=== PATIENT | male | born 1950 | race Caucasian/White ===

== ENCOUNTER → 2016-06-12 | Outpatient (CLI) | payer MEDICARE, BC ==
--- NOTE | 2016-06-13 08:18 | DI ---
Indication: ITS.REASON: C61 Comparison: None PROCEDURE: CT of the pelvis without contrast. Technique: Axial CT images were performed through the pelvis without intravenous contrast. Coronal and sagittal two-dimensional reformats. Automated Exposure Control and Iterative Reconstruction dose lowering techniques were utilized. Findings: Small and large bowel loops show sigmoid diverticulosis without diverticulitis. Bladder appears normal. Calcifications in the right aspect of the prostate which is not enlarged. Seminal vesicles are unremarkable. No free fluid. No adenopathy identified. Small fat-containing left inguinal hernia. Bone windows show no worrisome lytic or blastic osseous lesions. Impression: Radiation therapy treatment planning exam as above. .
== END ==
LOC: IMA 17:30
PROVIDERS: ATTEND Radiology Radiation Oncology
DX: C61 Malignant neoplasm of prostate (principal)

== ENCOUNTER → 2016-06-13 | Outpatient (CLI) | payer MEDICARE, BC ==
[~2016-06-13] MED LIST: SALINE FLUSH 10ml SYRINGE ONE
--- NOTE | 2016-06-13 11:23 | DI ---
Indication: ITS.REASON: C61 PROSTATE CA PROCEDURE: NM BONE SCAN, WHOLE BODY: Encounter: Subsequent Comparison: Treatment planning CT from 06/12/2016 Technique: 27.1 mCi of Tc-99m MDP was administered intravenously. Anterior and posterior planar whole-body and spot images were obtained. FINDINGS: The scan demonstrates the expected normal biodistribution for the radiotracer. There is probable degenerative uptake seen in the right shoulder and right knee. There is no abnormal radiotracer uptake to suggest bony metastasis. IMPRESSION: No evidence of metastatic disease to the skeleton. .
== END ==
LOC: IMA 07:39
PROVIDERS: ATTEND Student in an Organized Health Care Education/Training Program
DX: C61 Malignant neoplasm of prostate (principal)
CPT/HCPCS: 78306; A9503

== ENCOUNTER → 2016-06-17 | Outpatient (CLI) | payer MEDICARE, BC ==
[~2016-06-17] MED LIST changes: +IOHEXOL 300 MG/ML 100ml INJECTION ONE; +NORMAL SALINE 100 ML ONE
[2016-06-17 07:41] LABS: CREATININE 1.1 MG/DL (0.8-1.5)
--- NOTE | 2016-06-17 10:46 | DI ---
Indication: ITS.REASON: C61 PROSTATE CA PROCEDURE: CT CHEST/ABD/PELVIS WC: Encounter: Subsequent Comparison: Bone scan dated June 13, 2016 Technique: Axial CT images were performed through the chest, abdomen and pelvis after the administration of intravenous contrast. Coronal and sagittal two-dimensional reformats. Automated Exposure Control and Iterative Reconstruction dose reducing techniques were utilized. Contrast: Omnipaque 300 99 mL Findings: Chest: Mild centrilobular emphysema. Probable scarring in the medial lower lobes. No consolidative pneumonia, pleural effusion or pneumothorax. The central airways are patent. Two small noncalcified nodules in the left lower lobe with the largest measuring 4 mm in size on axial image #48. No axillary or mediastinal adenopathy. Heart size is normal. No pericardial effusion. Coronary artery calcifications. Abdomen/pelvis: Abdominal aortic aneurysm is present measuring up to 4.6 x 4.4 cm in diameter on axial image #36. 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 This originates below the level of the renal arteries and is a fusiform shape. The liver shows several small low-attenuation foci which are too small to definitively characterize. No enhancing liver masses or bile duct dilatation. The gallbladder is surgically absent. The spleen, pancreas and adrenal glands are within normal limits. The kidneys are normal. No abdominal or pelvic lymphadenopathy. Small fat-containing left inguinal hernia. Bladder is normal. Prostatic calcifications. No free fluid. Sigmoid diverticulosis without acute diverticulitis. No bowel obstruction. Bone windows show mild degenerative change in the spine without lytic or blastic osseous lesions. Poststernotomy changes. Impression: 1. 4.6 cm abdominal aortic aneurysm. Recommend vascular surgical evaluation. Six-month follow-up CTA of the abdomen is recommended for monitoring. 2. No definite evidence of metastatic disease in the chest, abdomen or pelvis. 3. 4 mm left lower lobe pulmonary nodule which is most likely to represent a benign granuloma. Recommend continued attention to this area on follow-up exams. 4. Indeterminate low-attenuation liver lesions statistically most likely to represent benign cysts. Continued attention to these areas is also recommended on follow-up studies. .
== END ==
LOC: IMA 07:20
PROVIDERS: ATTEND Internal Medicine Medical Oncology
DX: C61 Malignant neoplasm of prostate (principal); I71.4 Abdominal aortic aneurysm, without rupture; K76.9 Liver disease, unspecified; R91.1 Solitary pulmonary nodule
CPT/HCPCS: 36415; 71260; 74177; 82565; J7050; Q9967; 84520

== ENCOUNTER 2016-06-27 10:06 | Day surgery (SDC) | payer MEDICARE, BC ==
[2016-06-27] VITALS (9 sets, daily range): BP systolic 94–142; BP diastolic 52–72; PULSE 54–72; RESP 16; TEMP 97.9–98.9; O2SAT 92–97; Ht 177.8 cm; Wt 90.4 kg
[~2016-06-27] VITALS: Ht 177.8 cm; Wt 90.4 kg
[~2016-06-27 10:06] MED LIST changes: +ASPI81TA43 PO; +ERTAPENEM 1 G in NORMAL SALINE 100 ML IV ONE; -IOHEXOL 300 MG/ML 100ml INJECTION ONE; +LIDOCAINE 1% (10mg/ml) 2ml SDV INJ ONE; +LOVA40TA2 PO; +LR 1,000 ML IV SCH; +METO25TA6 PO; -NORMAL SALINE 100 ML ONE; +RAMI5CAP22 PO; -SALINE FLUSH 10ml SYRINGE ONE
--- OUTSIDE RECORDS SUMMARY | 2016-06-27 10:19 | XMS REPORT | Referral Summary ---
Author Author [facility] Organization [facility] Address Unknown Phone Unavailable Care Team Providers Care Drill Setup Operator Name Role Phone Chris Alvarado Primary Care Physician [phone] Encounter VC Date(s): 05/14/16 - 05/14/16 [facility] [address] [place] [address] [place] [address] Discharge Diagnosis: Elevated PSA Discharge Disposition: 01-Home or Self Care Attending Physician: Natasha Moctezuma MD Admitting Physician: Natasha Moctezuma MD Vital Signs Most recent to 1 oldest [Reference Range]: Blood Pressure 128/78 mmHg [90-140/60-90 mmHg] (05/14/16 3:00 PM) Problem List No data available for this section Allergies, Adverse Reactions, Alerts Substance Reaction Severity Status penicillin Active Medications aspirin 81 mg oral tablet 81 mg 1 tabs, Oral, Daily, # 30 tabs, 0 Refill(s) Start Date: 05/13/16 Status: Ordered atorvastatin 20 mg oral tablet 20 mg 1 tabs, Oral, Daily, # 30 tabs, 0 Refill(s) Start Date: 05/13/16 Status: Ordered Chantix Starter Pack 0.5 mg-1 mg oral tablet 1 tabs, Oral, BID, as directed on package labeling, # 53 tabs, 0 Refill(s), Pharmacy: [facility] [id number] Start Date: 05/13/16 Status: Ordered Cipro 250 mg oral tablet 500 mg 2 tabs, Oral, q12hr, to be started on the day of procedure., X 7 days, # 28 tabs, 0 Refill(s), Pharmacy: [facility] [id number], 2 tabs Oral q12hr, x7 days,Instr:to be started on the day of procedure. Start Date: 05/14/16 Stop Date: 05/21/16 Status: Ordered metoprolol tartrate 50 mg oral tablet 50 mg 1 tabs, Oral, BID, # 60 tabs, 0 Refill(s) Start Date: 05/13/16 Status: Ordered ramipril 5 mg oral capsule 5 mg 1 caps, Oral, Daily, # 30 caps, 0 Refill(s) Start Date: 05/13/16 Status: Ordered Tylenol 8 Hour 650 mg oral tablet, extended release 1,300 mg 2 tabs, Oral, q8hr, as needed for pain, # 24 tabs, 0 Refill(s) Start Date: 05/13/16 Status: Ordered Results Urinalysis Most recent to 1 oldest [Reference Range]: UA WBC [0-4] 0-2 (05/14/16 3:44 PM) UA RBC [0-4] 0-4 (05/14/16 3:44 PM) Epithelial Cells 0-2 (05/14/16 3:44 PM) Immunizations No data available for this section Procedures Procedure Date Related Diagnosis Body Site Appendix gall bladder Surgery Surgery Social History Social History Type Response Smoking Status Current some day smoker; Type: Cigarettes; Tobacco use per day: 1/2 pack or more Assessment and Plan Extracted from: Title: Office Visit Note Author: Natasha Moctezuma MD Date: 05/14/16 Assessment/Plan 65 yo M with elevated PSA. 1.Elevated PSA Discussed the differential diagnosis, screening guidelines and prevalence of prostate cancer. Will schedule patient for TRUS NBP at next available appointment in [facility]. Ordered: ciprofloxacin, 500 mg 2 tabs, Oral, q12hr, to be started on the day of procedure., X 7 days, # 28 tabs, 0 Refill(s), [facility] [id number], 2 tabs Oral q12hr,x7 days,Instr:to be started on the day of procedure. Office Visit Level 4 New 98805 Urinalysis Microscopic Urine Culture
--- OUTSIDE RECORDS SUMMARY | 2016-06-27 10:19 | XMS REPORT | Continuity of Care Document ---
Author Author Lynne [facility] Address Unknown Phone Unavailable Allergies Medications Problems Date Dx Coded Attending Type Code Diagnosis Diagnosed By 10/13/2013 ONI TEMPLETON MD 491.21 OBSTRUCTIVE CHRONIC BRON 10/13/2013 ONI TEMPLETON MD 786.50 CHEST PAIN NOS 11/14/2013 ONI TEMPLETON MD 238.2 [facility] Procedures Code [place] [address] ROUTINE VENIPUNCTURE ONI TEMPLETON MD 10/13/2013 97616 CHEST X-RAY ONI TEMPLETON MD 10/13/2013 24562 COMPREHEN METABOLIC PANEL ONI TEMPLETON MD 10/13/2013 74340 ASSAY OF CK (CPK) ONI TEMPLETON MD 10/13/2013 10155 CREATINE, MB FRACTION ONI TEMPLETON MD 10/13/2013 12330 LACTATE (LD) (LDH) ENZYME ONI TEMPLETON MD 10/13/2013 59127 ASSAY OF TROPONIN, QUAL ONI TEMPLETON MD 10/13/2013 69188 COMPLETE CBC W/AUTO DIFF WBC ONI TEMPLETON MD 10/13/2013 44751 PROTHROMBIN TIME ONI TEMPLETON MD 10/13/2013 26617 THROMBOPLASTIN TIME, PARTIAL ONI TEMPLETON MD 10/13/2013 11240 ELECTROCARDIOGRAM, TRACING ONI TEMPLETON MD 10/13/2013 Results Test Result Range CBC - 10/13/13 10:30 RBC 5.51 10^6u 4.6-6.2 Bulloch % 10.4 % 0-12 MPV 11.5 FL Platelet 105 10^3u 150-450 RDW 12.8 % Neut % 57.4 % 55-79 WBC 5.38 10^3u 4.5-10.5 MCV 92.6 FL 84-98 Baso % 0.2 % 0-2 MCHC 36.1 G/DL 31-37 Eos % 1.5 % 0-3 HCT 51.0 % 38-54 HGB 18.4 G/DL 12.0-16.0 MCH 33.4 PG 27-32 Lymph % 30.5 % 20-42 Protime - 10/13/13 10:30 Protime 10.8 SEC 10-12 INR 1.04 APTT - 10/13/13 10:30 APTT 27.8 SEC 22-31 CMP - 10/13/13 10:30 Phosphorus 3.3 MG/DL 2.5-4.9 Osmo Calculated 278 MOSM 280-300 Sodium 140 MMOLL 135-145 Potassium 4.2 MMOLL 3.5-5.5 T Bili 0.6 MG/DL 0.0-1.0 T. Protein 7.2 G/DL 6.4-8.2 Chloride 103 MMOLL 98-107 Anion GAP 16.0 MMOLL 5.0-15.0 Albumin 3.7 G/DL 3.4-5.0 Alk Phos 85 U/L 46-116 ALT 38 U/L 30-65 AST 21 U/L 15-37 Bun/Creat 6.7 U/L 5.0-35.0 BUN 8 MG/DL 7-18 Calcium 8.6 MG/DL 8.5-10.1 Glucose 97 MG/DL 74-106 Globulin 3.5 G/DL 3.0-3.2 A/G Ratio 1.1 RATIO 1.1-1.6 EGFR 65 MLMIN > 60 Creatinine 1.2 MG/DL 0.6-1.3 CO2 25.2 MMOLL 21-32 Cardiac Markers - 10/13/13 10:30 LDH 133 U/L 81-234 Troponin I 0.00 NG/ML 0.00-0.05 CKMB 0.9 NG/ML 0.0-3.6 CPK 64 U/L 26-308 Encounters ACCT No. Visit Date/Time Discharge Status Pt. Type Provider Facility Loc./Unit Complaint [id number] 08/08/2014 15:41:00 08/08/2014 15 :41:00 CAN Emergency JARETH ECJA, [facility] ER [id number] 11/14/2013 13:40:00 11/14/2013 13 :40:00 DIS Outpatient JARETH CEJA, [facility] OTHER [id number] 10/13/2013 10:07:00 10/13/2013 10 :07:00 DIS Outpatient JARETH CEJA, [facility] LAB [id number] 10/13/2013 09:20:00 10/13/2013 09 :20:00 DIS Outpatient JARETH CEJA, ON[facility] OTHER
--- OUTSIDE RECORDS SUMMARY | 2016-06-27 10:20 | XMS REPORT ---
Author Author Hilary Tidwell Organization [employer] Address Unknown Phone Unavailable Care Team Providers Care Sales And Service Agent Name Role Phone Hilary Tidwell CP Unavailable Allergies, Adverse Reactions, Alerts Substance Reaction Event Type PCN Info Not Available Non Drug Allergy Problems Problem Type Condition Code Onset Dates Condition Status Assessment Right shoulder strain, initial encounter S46.911A Active Medications Medication Code System Code Instructions Start Date End Date Status Dosage Atorvastatin Calcium [facility] [address]-82 20 MG Orally Once a day 1 tablet Ramipril [facility] [address]-82 5 MG Orally Once a day 1 capsule Metoprolol Tartrate [facility] [address]-08 25 MG Orally Twice a day 1 tablet Aspir-81 [facility] [address]-97 81 MG Orally Once a day 1 tablet Procedures Procedure Coding System Code Date OFFICE VISIT, LIVESTOCK SLAUGHTERER-LOW COMPLEXITY (20 MIN.) CPT-4 34199 Dec 24, 2015 [facility] visit New Patient CPT-4 G0466 Dec 24, 2015 Vital Signs Date/Time: Dec 24, 2015 Temperature 97.7 F Height 69 in Weight 200.9 lbs Blood Pressure Diastolic 90 mm Hg Blood Pressure Systolic 154 mm Hg Cardiac Monitoring Heart Rate 67 /min BMI 29.66 Index Oximetry 97 % Respiratory Rate 18 /min Results No Known Results Summary Purpose [employer] Submission
--- OUTSIDE RECORDS SUMMARY | 2016-06-27 10:20 | XMS REPORT ---
Author Author Hilary Tidwell Organization [employer] Address Unknown Phone Unavailable Care Team Providers Care Waste Disposal Attendant Name Role Phone Hilary Tidwell CP Unavailable Allergies No Known Allergies Problems Problem Type Condition Code Onset Dates Condition Status Assessment Right shoulder strain, initial encounter S46.563F Active Medications No Known Medications Results No Known Results Summary Purpose [employer] Submission
--- OUTSIDE RECORDS SUMMARY | 2016-06-27 10:20 | XMS REPORT | Referral Summary ---
Author Author [facility] Organization [facility] Address Unknown Phone Unavailable Care Team Providers Care Graphics Specialist Name Role Phone Chris Alvarado Primary Care Physician [phone] Encounter Date(s): 05/13/16 - 05/13/16 [facility] [address] [place] [address] Discharge Diagnosis: Elevated PSA Discharge Diagnosis: CAD (coronary artery disease) Discharge Diagnosis: Tobacco abuse Discharge Diagnosis: General medical exam Discharge Diagnosis: Occult blood positive stool Discharge Disposition: -Home or Self Care Attending Physician: Chris Alvarado DO Admitting Physician: Chris Alvarado DO Vital Signs Most recent to 1 oldest [Reference Range]: Temperature Tympanic 36.9 degC [36.6-38.1 degC] (05/13/16 10:00 AM) Peripheral Pulse 72 bpm Rate [60-100 bpm] (05/13/16 10:00 AM) Respiratory Rate 17 br/min [14-20 br/min] (05/13/16 10:00 AM) Blood Pressure 132/80 mmHg [90-140/60-90 mmHg] (05/13/16 10:00 AM) SpO2 98 % (05/13/16 10:00 AM) Problem List No data available for this [...] labeling, # 53 tabs, 0 Refill(s), Pharmacy: [facility] [id number] Start Date: 05/13/16 Status: Ordered metoprolol tartrate 50 mg oral [...] Refill(s) Start Date: 05/13/16 Status: Ordered Results No data available for this section Immunizations No data available for this section Procedures Procedure Date Related Diagnosis Body Site Appendix gall bladder Surgery Surgery Social History Social History Type Response Smoking Status Current some day smoker; Type: Cigarettes; Tobacco use per day: 1/2 pack or more Assessment and Plan Extracted from: Title: Office Visit Note Author: Chris Alvarado DO Date: 05/13/16 Assessment/Plan 1.CAD (coronary artery disease) 1. Continue with shoe folder recommendations. 2. Consider healthy lifestyle changes. 3. Agree with consideration of tobacco cessation. 4. His lipids are well controlled at this time. Ordered: Smoking and tobacco use cessation counseling visit more than 10 minutes [id number] 2.Elevated PSA 1. PSA done at the [facility] on 05/06/16 was elevated at 6.8 2. We will refer him to Urologist for farther evaluation and management. Ordered: Smoking and tobacco use cessation counseling visit more than 10 minutes [id number] 3.Occult blood positive stool 1. Will refer him to Dr Ramsay for colonoscopy for age greater than 50 and + fecal occult blood testing. General medical exam 1. The is a relatively healthy gentleman with significant risk factors for cardiovascular disease. This was discuss in detail. 2. Recommend healthy lifestyle changes. 3. Wt loss recommended. 4. Transfer records from the [facility] and other providers for review. 5. Follow up yearly for WME. Ordered: Office Visit Level 4 New 94248 Smoking and tobacco use cessation counseling visit more than 10 minutes [id number] Tobacco abuse 1. Associated risk factors with tobacco use discuss in detail, all questions answered. 2. He was encouraged to continue with cessation. 3. Was started on Chantix starter pack. 4. Follow up in three months. Ordered: Office Visit Level 4 New 50080 Smoking and tobacco use cessation counseling visit more than 10 minutes [id number]
--- NOTE | 2016-06-27 11:39 | ANESPREOP ---
Anesthesia Record Date and Time DATE: 06/27/16 TIME: 11:37 Pre-Op Diagnosis Left inguinal hernia Proposed Surgical Procedure LEFT INGUINAL HERNIA REPAIR NPO since: midnight Allergies: Coded Allergies: Penicillins (Verified Allergy, Unknown, RASH-HIVES, 06/27/16) Ht/Wt/BMI Height: 5 ' 10.00 " Weight: 90.400 kg BMI: 28.6 kg/m2 Vital Signs Date Time Temp Pulse Resp B/P Pulse Ox O2 Delivery O2 Flow Rate FiO2 06/27/16 11:07 98.9 58 16 142/63 94 Room Air Medications Inpatient Medications Current Medications Medications (Trade) Dose Ordered Sig/Jacki Start Time Stop Time Status Last Admin Dose Admin Lactated Ringer's (Lactated Ringers) 1,000 ml @ 50 mls/hr Q20H 06/27/16 07:00 06/27/16 11:09 50 MLS/HR Aspirin (Aspir-Low) 81 Mg Tablet.dr, 1 TAB PO DAILY, (Reported) Last Taken: on 06/22/16 Lovastatin (Lovastatin) 40 Mg Tablet, 40 MG PO HS, ( Reported) Take one tablet, by mouth, one time a day (at bedtime). Metoprolol Tartrate (Metoprolol Tartrate) 25 Mg Tablet, 25 MG PO BID, (Reported) Take 1 tab, by mouth, one time a day (with breakfast). Ramipril (Ramipril) 5 Mg Capsule, 5 MG PO DAILY, (Reported) Currently on Beta Stacy: Yes Beta Stacy Last Taken: 06/26/16 1900 Medical/Surgical History Anesthesia PMH: Reports: *Hypertension, *AK (CABG 1992/ Stents 2002), Anesthesia Reactions (NO AIRWAY ISSUES), Arthritis (OA), COPD, Cancer (PROSTATE) , Hiatal Hernia, Hyperlipidemia, Reflux, Denies: Clotting Problems, Glaucoma, Malignant Hyperthermia, Sleep Apnea Smoking Status: Current every day smoker Has pt. smoked today?: No # of Packs per Day: 1 # of Years: 50 Use Chewing Tobacco?: No Second Hand Exposure: No Substance Use Type: does not use Alcohol Intake: rarely Past Surgical History Orthopedic Surgeries: Abdominal Surgeries: Yes - APPY, GALLBLADDER Genitourinary Surgeries: Yes - LITHO, CYSTOSCOPY Cardiac Surgeries: Yes - BIPASS 1992 CATH. X2, STENT 2002 Endocrine Surgeries: Reproductive Surgeries: Neurological Surgeries: Ear Surgeries: Nose Surgeries: Throat Surgeries: Other Surgeries: Anesthesia Adverse Reactions: FOUND none Family Hx of Anesthesia Advers: none Hx of Motion Sickness: No Pertinent Findings EKG Rhythm: Sinus Rhythm Physical Exam Respiratory: Lungs clear Cardiovascular: FOUND Regular rate, rhythm Airway Assessment Mallampati Score: II TMD: 3 Fingerbreadths Neck Extension: Fair Teeth: Upper Dentures, Lower Dentures Overall Assessment: May Be Diff Intubation ASA: 3 Plan Anesthesia Plan: TIVA Discussion Discussed risks/options/alternatives of anesthesia and questions answered. Patient consents. Nursing pain assessment noted. Attestation Statement Prior to the delivery of any anesthetic medication, I examined the patient, developed the plan, obtained the patient's consent and discussed the risk and benefits of the procedure with the patient/guardian. MAYA ANGULO BIOMEDICAL MANAGER Jun 27, 2016 11:39
[2016-06-27 12:39] LABS: ANION GAP 10 MEQ/L (5-15); BUN/CREATININE RATIO 16 RATIO (6-26); CHLORIDE 113 MEQ/L (98-107); CO2 - CARBON DIOXIDE 24 MEQ/L (22-30); CREATININE 0.9 MG/DL (0.8-1.5); GLOMERULAR FILTRATION RATE 84; GLUCOSE 91 MG/DL (75-110); POTASSIUM 4.2 MEQ/L (3.6-5); SODIUM 147 MEQ/L (134-144)
[2016-06-27] MEDS ORDERED: BUPIVACAINE 0.25%/EPI 1:200,000 30ml SDV ONE (12:43)
[2016-06-27] MEDS ORDERED: PROPOFOL 500mg 50 ML IV ONE ×2 (12:57→13:40)
[2016-06-27] MEDS ORDERED: FENTANYL 100mcg/2ml INJECTION ONE (12:59)
[2016-06-27] MEDS ORDERED: KETAMINE 500mg/10ml INJECTION ONE (13:06)
[2016-06-27] MEDS ORDERED: POLY17PO6 PO (14:24)
[2016-06-27] MEDS ORDERED: IBUP-1724 PO (14:24)
[2016-06-27] MEDS ORDERED: HYDR-973 PO (14:24)
--- NOTE | 2016-06-27 14:36 | ANESPO ---
Post-Op Note Date 06/27/16 Time: 14:36 Status Pt Participated in Evaluation: Pt participated in person Vital Signs Date Time Temp Pulse Resp B/P Pulse Ox O2 Delivery O2 Flow Rate FiO2 06/27/16 14:20 97.9 72 16 94/52 97 Mask 8.00 Respiratory Function: Airway patent, Regular respirations Cardiovascular Function: Regular pulse Telemetry Pattern: SR Mental Status: Alert/oriented Pain Level Intensity: 0 Hydration: Taking po fluids Complications during Recovery None apparent Follow-Up Instructions Instructions Per Surgeon EDISON MILAN CRNA Jun 27, 2016 14:36
[2016-06-27] MEDS ORDERED: HYDROCODONE/APAP 5 mg/325 mg TABLET PO PRN (15:00)
[2016-06-27] MEDS ORDERED: KETOROLAC 15mg/ml INJECTION IV SCH (15:00)
[2016-06-27] MEDS ORDERED: MORPHINE 10mg/ml vl INJECTION IV PRN (15:30)
--- NOTE | 2016-06-28 09:09 | OPNOTEF ---
DATE OF SERVICE 06/27/2016 SURGEON Rajan Ramsay MD PREOPERATIVE DIAGNOSIS Incarcerated left inguinal hernia. POSTOPERATIVE DIAGNOSIS Strangulated left inguinal hernia. PROCEDURE Repair of strangulated left inguinal hernia. ANESTHESIA TIVA/local. BRIEF HISTORY/INDICATIONS Mr. Simon is a 65-year-old gentleman who about two days ago had presented to my office as a result of some discomfort within his left inguinal region. Upon examination the patient was found to have a tender mass within the left inguinal region. He had no obstructive symptomatology such as nausea or vomiting. The patient was fairly stoic and stated that he was not in any discomfort. The patient, however, from a clinical standpoint did appear to have some discomfort noted upon physical examination. It was recommended to the patient that he undergo a "semiemergent" repair of his left inguinal hernia. Patient was informed that if he began to develop nausea or vomiting or increasing pain that he should contact me prior to today's scheduled inguinal herniorrhaphy. For completeness please refer to notes included in the patient's chart. FINDINGS Upon inguinal exploration, the patient was found to have what appeared to be that of a strangulated inguinal hernia. There was a large indirect hernia sac that contained omentum that did show some evidence for vascular compromise. This portion of omentum that did show a component of some vascular compromise was resected and submitted for pathologic evaluation. The indirect hernia was repaired via standard mesh plug technique. DESCRIPTION OF PROCEDURE After informed consent was obtained, patient was brought to the operative suite and placed on the table in a supine fashion. Left inguinal region was then prepped and draped in a sterile fashion. Formal time-out was then completed. Then, 0.25% Marcaine with epinephrine was injected just above the pubic symphysis and extended out laterally. A slightly larger incision was then made typical for inguinal hernia given the above circumstances. A 6- to 7-cm incision was made overlying the area of analgesia. Dissection was carried down into the deep subcuticular tissues underlying the external oblique aponeurosis. External oblique aponeurosis was then opened along the course of its fibers down to and through the external ring. Patient was found to have a large indirect hernia sac that contained a hard mass adjacent to the cord structures. This mass and cord structures were then dissected off of the pubic tubercle in a mediolateral fashion. Justina drain was then placed around the cord structures. This large indirect hernia sac was then dissected free from the cord structures. Hernia sac was opened, and it did contain a component of omentum that showed a component of vascular compromise. More omentum was then gently pulled through the internal ring/fascial defect until viable-appearing omentum was identified. This omentum proximally was then divided sequentially between right angle clamps and ligated with 0 Vicryl ties. The distal portion of the omentum and hernia sac was then submitted for pathologic evaluation. Next, the cord structure were then dissected out circumferentially. Patient was found to have a moderate-sized cord lipoma that was also dissected away from the cord structures and returned back through the internal ring. Next, a large mesh plug was then brought forth to the operative field and placed through the internal ring and imbricated the surrounding tissues by placing several simple interrupted sutures of 2-0 Prolene. Next, a mesh overlay was then brought forth to the operative field and imbricated the underlying tissues in a standard Gregorio fashion. First, mesh overlay was imbricated to the pubic symphysis with 2-0 Prolene. Mesh overlay was imbricated along the shelving edge out laterally. Medially the mesh overlay imbricated the underlying internal oblique and transversalis aponeurosis in a running fashion with 2-0 Prolene. Tail portions were then cut within the mesh and allowed to envelope the cord as it exited through the internal ring. Tail portions of the mesh were then also imbricated to one another in a running fashion with 2-0 Prolene. Newly created internal ring could easily accommodate the tip of the hemostat between the cord structures and the mesh itself. Additionally it should be noted that the ilioinguinal nerve was identified and divided proximally as to prevent incorporation of the nerve into the mesh repair. Next, prior areas of dissection were inspected and found to be hemostatic in nature. Attention was directed towards closure. External oblique aponeurosis was closed anterior to the cord structures in a running fashion with 3-0 Vicryl. Subcutaneous tissues and Zarina's fascia was then reapproximated in a running fashion with 3-0 Vicryl. Skin itself was then closed in a running subcuticular fashion with 4-0 Monocryl. Dermabond was placed overlying the incision. Patient was awakened from his general anesthetic and sent back to recovery room once deemed in stable condition. MARK
== END 2016-06-27 16:27 | disposition home or self-care (01) ==
LOC: SCU 10:06
PROVIDERS: ATTEND Surgery
DX: K40.30 Unilateral inguinal hernia, with obstruction, without gangrene, not specified as recurrent (principal); C61 Malignant neoplasm of prostate; I25.10 Atherosclerotic heart disease of native coronary artery without angina pectoris; I25.2 Old myocardial infarction; F17.210 Nicotine dependence, cigarettes, uncomplicated; Z79.82 Long term (current) use of aspirin; Z79.899 Other long term (current) drug therapy
CPT/HCPCS: 36415; 49507; 80048; A9270; J1335; J1885; J3010; J7050; J7120; 88302; 93005

== ENCOUNTER 2016-07-17 20:32 | Observation (INO) | payer MEDICARE, BC ==
[~2016-07-17] VITALS: Ht 177.8 cm; Wt 90.4 kg
[~2016-07-17 20:32] MED LIST changes: -ERTAPENEM 1 G in NORMAL SALINE 100 ML IV ONE; +HYDR-973 PO; +IBUP-1724 PO; -LIDOCAINE 1% (10mg/ml) 2ml SDV INJ ONE; -LR 1,000 ML IV SCH; +POLY17PO6 PO
--- OUTSIDE RECORDS SUMMARY | 2016-07-17 20:35 | XMS REPORT | Continuity of Care Document ---
Author Author Lynne [facility] Address Unknown Phone Unavailable Allergies Medications Problems Date Dx Coded Attending Type Code Diagnosis Diagnosed By 10/13/2013 ONI TEMPLETON MD 491.21 OBSTRUCTIVE CHRONIC BRON 10/13/2013 ONI TEMPLETON MD 786.50 CHEST PAIN NOS 11/14/2013 ONI TEMPLETON MD 238.2 [facility] Procedures Code Description [place] [address] ROUTINE VENIPUNCTURE ONI TEMPLETON MD 10/13/2013 65533 CHEST X-RAY ONI TEMPLETON MD 10/13/2013 47090 COMPREHEN METABOLIC PANEL ONI TEMPLETON MD 10/13/2013 96357 ASSAY OF CK (CPK) ONI TEMPLETON MD 10/13/2013 57523 CREATINE, MB FRACTION ONI TEMPLETON MD 10/13/2013 38008 LACTATE (LD) (LDH) ENZYME ONI TEMPLETON MD 10/13/2013 31740 ASSAY OF TROPONIN, QUAL ONI TEMPLETON MD 10/13/2013 12388 COMPLETE CBC W/AUTO DIFF WBC ONI TEMPLETON MD 10/13/2013 45630 PROTHROMBIN TIME ONI TEMPLETON MD 10/13/2013 89224 THROMBOPLASTIN TIME, PARTIAL ONI TEMPLETON MD 10/13/2013 79067 ELECTROCARDIOGRAM, TRACING ONI TEMPLETON MD 10/13/2013 Results Test Result Range CBC - 10/13/13 10:30 RBC 5.51 10^6u 4.6-6.2 [place] % 10.4 % 0-12 MPV 11.5 FL [...] Status Pt. Type Provider Facility Loc./Unit Complaint [id number] 08/08/2014 15:41:00 08/08/2014 15 :41:00 CAN Emergency JARETH CEJA, [facility] ER [id number] 11/14/2013 13:40:00 11/14/2013 13 :40:00 DIS Outpatient JARETH CEJA, ONI [facility] OTHER [id number] 10/13/2013 10:07:00 10/13/2013 10 :07:00 DIS Outpatient JARETH CEJA, [facility] LAB [id number] 10/13/2013 09:20:00 10/13/2013 09 :20:00 DIS Outpatient JARETH CEJA, [facility] OTHER
--- OUTSIDE RECORDS SUMMARY | 2016-07-17 20:36 | XMS REPORT | Continuity of Care Document ---
Author Author [facility] Organization [facility] Address Unknown Phone Unavailable Support Name Relationship Address Phone FARAZ PAUL FACS, MD Caregiver [address] [place] [address] [place] [address] Unavailable FANY HARVEY DO Caregiver [address] [place] [address] [place] [address] Unavailable MEGHNA TIDWELL Next Of Kin [address] [place] [address] Insurance Providers Guarantor Jennifer Tidwell Address [address] [place] [address] Email [email or web address] Policy Number [id number] Subscriber's Name Jennifer Tidwell Relationship 18 Self Group Number [id number] Payer Medicare Policy Number [id number] Subscriber's Name Jennifer Tidwell Relationship 18 Self Advance Directives Directive Response Recorded Date/Time Ordered Resuscitation Status Full Code 06/26/16 2:33pm Resuscitation Documents on File No 06/27/16 10:52am DPOA for Healthcare Only No 06/27/16 10:52am Living Will No 06/27/16 10:52am Problems No problem information available. Medications Current Home Medications Medication Dose Units Route Directions Days Qty Instructions Start Date Aspirin (Aspir-Low) 81 Mg Tablet. 1 Tab Oral Daily 30 Tablet 09/06 Hydrocodone/Acetaminophen ([place] 5-325 Tablet) 5-325 Tablet 1-2 Tab Oral Every 5 Hours as needed for Pain 40 Tablet Take 1-2 tablets, by mouth, every 5 hours as needed for Pain 06/27/16 Ibuprofen 200 Mg Tablet 600 Mg Oral Every 6 Hours as needed for Pain 10 Days 120 Tablet 06/27/16 Lovastatin 40 Mg Tablet 40 Mg Oral Bedtime Take one tablet, by mouth , one time a day (at bedtime). 06/26/16 Metoprolol Tartrate 25 Mg Tablet 25 Mg Oral Twice A Day Take 1 tab, by mouth, one time a day (with breakfast). 06/26/16 Polyethylene Glycol 3350 (Miralax) 17 Gm Powd.pack 1 Packet Oral Daily for Constipation 30 Packet 06/27/16 Ramipril 5 Mg Capsule 5 Mg Oral Daily 06/26/16 Social History Social History Problem Response Recorded Date/Time Onset Date Status Reason for Hospitalization inguina\\l hernia repair 06/27/2016 2:56pm Not Applicable Not Applicable Chewing Tobacco Status No 06/27/2016 10:49am Not Applicable Not Applicable Hx Substance Use No 06/27/2016 10:49am Not Applicable Not Applicable Hx Alcohol Use Y MONTHLY 06/27/2016 10:49am Not Applicable Not Applicable Has the pt used tobacco in the last 12 months Yes 06/27/2016 10:49am Not Applicable Not Applicable Query Response Start Date Stop Date Smoking Status Current every day smoker Hospital Discharge Instructions Instructions: Care Instructions: I was in the hospital because (patient own words): "HERNIA REPAIR" Discharge Diet: regular Discharge Activity: Do not drive, operate machinery for 24 hours after surgery or while taking pain medication. No lifting more than 25 pounds for 4 weeks. Follow Up Appointments: Follow up with Priyanka Bill APRN/Dr. Paul on 07-15-2016 at 10:00 Pending Lab / Results: No Pending Lab Expected Signs/Symptoms: Tenderness, discoloration, swelling of penis and scrotum. A ridge will form under the incision in 5-7 days, this is normal. Tenderness at the incisioin are causing difficulty bending over for about a week. Jocky type shorts or gentle scrotal support may help with scrotal swelling and discomfort. Notify Physician If: 1. Call your surgeon if you are having problems relating to your surgery at [phone]. 2. Problems such as: Temp above 101.5 degrees You develop redness, excessive swelling of the incision, increasing pain or excessive foul smelling drainage. 3. If the office is closed, call [facility] at [phone] and have your Surgeon paged. During Business Hours:: Call your surgeon at at [phone]. After Business Hours:: If the office is closed, call [facility] at [phone] and have your Surgeon paged. Pain Management/Treatment: Follow prescriptions as prescribed Wound/Incision Care: Leave incision open to air. Do not rub or pick off the glue. May shower tomorrow. Condition at time of discharge: Good Plan of Care Discharge Date 06/27/16 4:27pm Instructions/Education Provided [facility] Surgical Services Prescriptions See Medication Section Functional Status Query Response Date Recorded Ability to complete ADL's impeded by No change June 27, 2016 10:52am Allergies, Adverse Reactions, Alerts Allergen Type Severity Reaction Status Last Updated Penicillin Allergy Unknown RASH-HIVES Active 06/27/16 Immunizations Query Response on File Recorded Date/Time Hx Influenza Vaccination Y fall 201506/27/16 10:49am Hx Pneumococcal Vaccination Y 2015 06/27/16 10:49am Hx Influenza Vaccination Y fall 201506/27/16 10:49am Vital Signs Acute Vital Signs Vital Response Date/Time Temperature (Fahrenheit) 97.9 deg F (96.8 - 99.1) 06/27/2016 2:20pm Temperature (Calculated Celsius) 36.04407 degrees C (36.0 - 37.3) 06/27/2016 2:20pm Temperature Source Temporal 06/27/2016 2:20pm Pulse Rate (adult) 56 bpm (60 - 100) 06/27/2016 4:20pm Respiratory Rate 16 breaths/min (10 - 20) 06/27/2016 4:20pm O2 Sat by Pulse Oximetry 93 % (90 - 100) 06/27/2016 4:20pm Oxygen Delivery Method Room Air 06/27/2016 4:20pm Oxygen Flow Rate 8.00 L/min 06/27/2016 2:20pm Blood Pressure 128/68 mm Hg 06/27/2016 4:20pm Blood Pressure Source Automatic Cuff 06/27/2016 4:20pm Height (Feet) 5 feet 06/27/2016 10:43am Height (Inches) 10.00 inches 06/27/2016 10:43am Weight (Kilograms) 90.400 kg 06/27/2016 10:43am Body Mass Index (BMI) 28.6 06/27/2016 10:43am Results Laboratory Results Test Name Result Units Flags Reference Collection Date/Time Result Date/ Time Comments Icterus Index < 2 0-7 06/27/2016 11:54am 06/27/2016 12:39pm Chemistry Specimen Hemolysis < 15 0-25 06/27/2016 11:54am 06/27/2016 12:39pm 0-25: Specimen Exhibited No Hemolysis. Turbidity < 20 0-20 06/27/2016 11:54am 06/27/2016 12:39pm Sodium Level 147 MEQ/L H 134-144 06/27/2016 11:54am 06/27/2016 12:39pm Potassium Level 4.2 MEQ/L 3.6-5 06/27/2016 11:54am 06/27/2016 12:39pm Chloride Level 113 MEQ/L H 98-107 06/27/2016 11:54am 06/27/2016 12:39pm Carbon Dioxide Level 24 MEQ/L 22-30 06/27/2016 11:54am 06/27/2016 12: 39pm Anion Gap 10 MEQ/L 5-15 06/27/2016 11:54am 06/27/2016 12:39pm Blood Urea Nitrogen 14.0 MG/DL 9-20 06/27/2016 11:54am 06/27/2016 12: 39pm Creatinine 0.9 MG/DL 0.8-1.5 06/27/2016 11:54am 06/27/2016 12:39pm BUN/Creatinine Ratio 16 RATIO 6-26 06/27/2016 11:54am 06/27/2016 12: 39pm Glomerular Filtration Rate Calc 84 06/27/2016 11:54am 06/27/2016 12 :39pm Glucose Level 91 MG/DL 75-110 06/27/2016 11:54am 06/27/2016 12:39pm Calculated Osmolality 283 MOSM/KG H 261-280 06/27/2016 11:54am 2016 12:39pm Calcium Level 9.0 MG/DL 8.4-10.2 06/27/2016 11:54am 06/27/2016 12:39pm Procedures Procedure Status Date Provider(s) Bone imaging whole body Completed 06/13/16 783114"TECHNETIUM TC-99M MEDRONATE, DIAGNOSTIC, PER STUDY DO Completed Cat scan follow-up study Completed 06/12/16 Routine venipuncture Completed 06/17/16 Ct thorax w/dye Completed 06/17/16 Ct abd & pelv w/contrast Completed 06/17/16 Assay of creatinine Completed 06/17/16 743584"INFUSION, NORMAL SALINE SOLUTION , 250 CC" Completed 06/17/16 408193"LOW OSMOLAR CONTRAST MATERIAL, 300-399 MG/ML IODINE C Completed Inguinal hernia repair Completed 06/27/16 FARAZ PAUL MD, FACS, CWS Encounters Encounter Location Arrival/Admit Date Discharge/Depart Date Attending Provider Departed Surgical Day Care [facility] 06/27/16 10:06am 06/27/16 4 :27pm FARAZ PAUL FACS, MD Registered [facility] 06/17/16 7:20am ALISTAIR JUAN MD Registered [facility] 06/13/16 7:39am SUSAN DEL REAL MD Registered [facility] 06/12/16 5:30pm JOVANNA BURROWS MD
--- NOTE | 2016-07-17 20:39 | NUR ---
EKG EKG OBTAINED
--- NOTE | 2016-07-17 20:44 | NUR ---
IVL IVL STARTED IN THE RIGHT HAND WITH #20GA, FIRST ATTEMPT BLOOD OBTAINED FOR LAB PT MEHRAN WELL
[2016-07-17] MEDS ORDERED: METO50TA5 PO (21:00)
--- NOTE | 2016-07-17 21:00 | NUR ---
MONITOR PT CONVERTED TO SR TELLS STAFF HE BURPED A COUPLE TIMES DR SALAZAR AWARE
[2016-07-17] MEDS ORDERED: CALC-1105 PO (21:03)
[2016-07-17] MEDS ORDERED: MULT-933 PO (21:03)
[2016-07-17] MEDS ORDERED: ATOR40TA64 PO (21:03)
[2016-07-17] MEDS ORDERED: NITR0.4T39 SL (21:03)
[2016-07-17 21:08] LABS: ALBUMIN/GLOBULIN RATIO 1.5 RATIO (1.1-2.2); ALKALINE PHOSPHATASE 95 U/L (38-126); ALT (SGPT) 57 U/L (21-72); ANION GAP 13 MEQ/L (5-15); AST (SGOT) 31 U/L (17-59); BUN/CREATININE RATIO 16 RATIO (6-26); CALCIUM 9.3 MG/DL (8.4-10.2); CHLORIDE 108 MEQ/L (98-107); CO2 - CARBON DIOXIDE 25 MEQ/L (22-30); GLOMERULAR FILTRATION RATE 75; GLUCOSE 190 MG/DL (75-110); POTASSIUM 3.7 MEQ/L (3.6-5); SODIUM 146 MEQ/L (134-144); TOTAL PROTEIN 6.7 G/DL (6.3-8.2)
--- NOTE | 2016-07-17 21:10 | NUR ---
EKG EKG OBTAINED
[2016-07-17 21:11] LABS: BASOPHILS % (AUTO) 0.2 % (0-2); EOSINOPHILS # (AUTO) 0.1 T/MM3 (0-0.5); EOSINOPHILS % (AUTO) 1.3 % (0-4); HCT - HEMATOCRIT 49.8 % (41-53); HGB - HEMOGLOBIN 17.2 GM/DL (13.5-17.5); IMMATURE GRANULOCYTE # (AUTO) 0.02 T/MM3 (0.00-0.03); IMMATURE GRANULOCYTE % (AUTO) 0.2 % (0.0-0.5); LYMPHOCYTES # (AUTO) 2.3 T/MM3 (1-4.8); LYMPHOCYTES % (AUTO) 27.4 % (23-45); MEAN CORPUSCULAR HGB 32.7 UUG (26-34); MEAN CORPUSCULAR HGB CONC(MCHC 34.5 GM/DL (31-37); MEAN CORPUSCULAR VOLUME 94.7 UM3 (80-100); MEAN PLATELET VOLUME 11.9 UM3 (9.4-12.4); MONOCYTES # (AUTO) 0.6 T/MM3 (0-0.8); MONOCYTES % (AUTO) 6.6 % (0-9.0); NEUTROPHILS #(AUTO)-ABSOLUTE 5.5 T/MM3 (1.8-7.7); NEUTROPHILS % (AUTO) 64.3 % (33-66); RED BLOOD COUNT 5.26 M/MM3 (4.50-5.90); WBC - WHITE BLOOD COUNT 8.5 T/MM3 (4.5-11.0)
--- NOTE | 2016-07-17 21:13 | NUR ---
STATUS PT RATES PAIN "BARELY A 1" DENIES NAUSEA OR ANY OTHER SX REMAINS AT BEDSIDE
--- OUTSIDE RECORDS SUMMARY | 2016-07-17 21:28 | XMS REPORT | Continuity of Care Document ---
Author Author Lynne [facility] Address Unknown Phone Unavailable Allergies Medications Problems Date Dx Coded Attending Type Code Diagnosis Diagnosed By 10/13/2013 ONI TEMPLETON MD 491.21 OBSTRUCTIVE CHRONIC BRON 10/13/2013 ONI TEMPLETON MD 786.50 CHEST PAIN NOS 11/14/2013 ONI TEMPLETON MD 238.2 [facility] Procedures Code Description [place] [address] ROUTINE VENIPUNCTURE ONI TEMPLETON MD 10/13/2013 77762 CHEST X-RAY ONI TEMPLETON MD 10/13/2013 11932 COMPREHEN METABOLIC PANEL ONI TEMPLETON MD 10/13/2013 41703 ASSAY OF CK (CPK) ONI TEMPLETON MD 10/13/2013 06804 CREATINE, MB FRACTION ONI TEMPLETON MD 10/13/2013 06484 LACTATE (LD) (LDH) ENZYME ONI TEMPLETON MD 10/13/2013 65299 ASSAY OF TROPONIN, QUAL ONI TEMPLETON MD 10/13/2013 77586 COMPLETE CBC W/AUTO DIFF WBC ONI TEMPLETON MD 10/13/2013 48076 PROTHROMBIN TIME ONI TEMPLETON MD 10/13/2013 53411 THROMBOPLASTIN TIME, PARTIAL ONI TEMPLETON MD 10/13/2013 18333 ELECTROCARDIOGRAM, TRACING ONI TEMPLETON MD 10/13/2013 Results Test Result Range CBC - 10/13/13 10:30 RBC 5.51 10^6u 4.6-6.2 [place] % 10.4 % 0-12 MPV 11.5 FL [...] Status Pt. Type Provider Facility Loc./Unit Complaint [id number] 08/08/2014 15:41:00 08/08/2014 15 :41:00 CAN Emergency JARETH CEJA, [facility] ER [id number] 11/14/2013 13:40:00 11/14/2013 13 :40:00 DIS Outpatient JARETH CEJA, ONI [facility] OTHER [id number] 10/13/2013 10:07:00 10/13/2013 10 :07:00 DIS Outpatient JARETH CEJA, [facility] LAB [id number] 10/13/2013 09:20:00 10/13/2013 09 :20:00 DIS Outpatient JARETH CEJA, [facility] OTHER
--- NOTE | 2016-07-17 21:47 | ERPDOC ---
Departure Disposition Decision Date: Jul 17, 2016 Disposition Decision Time: 22:15 Disposition: 02 TO [facility] Impression Impression Impression: Primary Impression: Atrial fibrillation with RVR Additional Impression: Chest pain Chest pain type: unspecified Qualified Codes: R07.9 - Chest pain, unspecified Severity: Moderate Condition: Improved Seen By: Physician only Referrals: FANY HARVEY DO (Family) Problems/Meds/Labs Reviewed?: Yes Medications reviewed and manag: Yes Follow up care ordered?: Yes Mental Status: Alert, Oriented HPI - General Medical General Chief Complaint: Chest Pain Stated Complaint: CHEST PAINS Time Seen by Provider: 20:45 Source: patient Exam Limitations: no limitations HPI - General Medical Initial Comments 65-year-old male presents to emergency department with a chief complaint of chest discomfort. Patient states that starting a few hours prior to presentation to the emergency department today he began feeling his heart beating erratically and a pressured sensation with this in his chest. He denies any history of similar symptoms in the past. Patient's current discomfort is moderate and dull in nature. There is no radiation. He does not note any exacerbating or remitting factors. Patient did take his full dose Lopressor for this evening prior to arrival to the emergency Department. Patient denies any other complaints or associated symptoms. Patient does have a history of coronary artery disease with stent placement in his last cardiac catheterization being in 2004. Patient did take 81 mg of aspirin prior to arrival to the emergency department today. Occurred At: home Onset: Constant Allergies: Coded Allergies: Penicillins (Verified Allergy, Unknown, RASH-HIVES, 07/17/16) Past History Past Medical History Metabolic: cancer, hypertension Cardiac: CAD Surgical History Cardiac: cardiac cath, cardiac stent Family History Family History: Negative Vaccines Hx Influenza Vaccination: Yes (FALL 2015) Hx Pneumococcal Vaccination: Yes (2015) Social History Smoking Status: Current every day smoker Does patient use chewing tobac: No # of Packs/Tins per Day: 1 # of Years: 50 Second Hand Exposure: No Substance Use Type: does not use Alcohol Intake: none Review of Systems Constitutional Constitutional: DENIES: chills, fever Eyes General: DENIES: erythema, exudate Lids/Accessories: DENIES: erythema, swelling Vision: DENIES: acuity, blurring ENMT Ears: DENIES: drainage, erythema Hearing: DENIES: hearing loss Balance: DENIES: ataxia, falling to one side Sinuses: DENIES: congestion, pain Nose: DENIES: nosebleeds, pain Mouth/Throat: DENIES: painful swallowing, sore throat Teeth: DENIES: pain Jaw: DENIES: pain Cardiovascular Cardiac: chest pain, DENIES: dyspnea on exertion Rhythm/Rate: irregular beat, palpitations Vascular: DENIES: pedal edema, unilateral swelling Pulmonary Respiratory: DENIES: cough, dyspnea, pleuritic chest pain, sputum GI Upper Abdomen: DENIES: nausea, pain, vomiting Lower Abdomen: DENIES: diarrhea, pain General: DENIES: dysuria, frequency Musculoskeletal General: DENIES: joint pain, pain, tenderness Integumentary Skin: DENIES: itching, rash Neurological General: DENIES: headache, numbness, weakness Psychiatric Psychiatric: DENIES: emotional instability, suicidal ideation/attempt Endocrine Endocrine: DENIES: polydipsia, polyphagia Hematologic/Lymphatic Hematologic/Lymphatic: DENIES: frequent nosebleeds, lymphadenopathy Allergic/Immunological Allergic/Immunoligical: DENIES: allergic reactions, hives Physical Exam General General Nourishment: well nourished, well developed, appears stated age, no acute distress, adult General Body Habitus: well groomed Vitals and Pain First Documented Vital Signs Date Time Temp Pulse Resp B/P Pulse Ox O2 Delivery O2 Flow Rate FiO2 07/17/16 20:36 98.2 155 16 133/90 94 Room Air Weight: Kilograms: 90.800 Height (feet): 5 Height (inches): 10.00 Triage Pain Scale: RN VS reviewed by Provider: Yes Normal Exams: Head: Normocephalic w/o trauma Eyes: Pupils are PERRLA w/ EOMI, No scleral icterus, irritation, or foreign bodies noted ENMT: No facial trauma, nasal exudates, pharyngeal erythema, or exudates are noted Dental: No fractured, loose, or missing teeth noted Neck: Full range of motion, without adenopathy, JVD, bruits or thyromegaly Chest/Resp: Clear all lindsay, with good airflow, and symmetry bilaterally CV: without murmur or gallop, Pulses 2+ all extremities, capillary refill, <2 seconds all ext., no pedal edema noted Abdomen: Bowel sounds positive, soft, non-tender, non-distended, no hepatosplenomegaly, masses or bruits noted Lymphatic: No lymphadenopathy, or lymphedema noted Musculoskeletal: No tenderness, or deformity noted, good range of motion, all extremities Integumentary: No rashes, hives, or bruising noted, hair and nails, without abnormality Neurologic: Patient is alert, and oriented, cranial nerves, motor/sensory/ cerebellar, exams w/o gross deficits, to observation Psychiatric: Patient exhibits, appropriate attention, emotion and affect Cardiovascular (brief) Comments Irregularly irregular rhythm at 140 bpm. Differential Diagnoses Considering: Acute TN, Medication Effect, Metabolic, Pulmonary Embolus, Other ( new onset atrial fibrillation) Progress Results/Orders Orders Procedure Category Date Status Time Cbc W/Auto LAB 07/17/16 Complete Diff-Reflex Manual Cmp - Comprehensive LAB 07/17/16 Complete Metabolic Troponin I W LAB 07/17/16 Complete Hemolysis Index EKG EKG 07/17/16 Taken 20:56 EKG EKG 07/17/16 Taken 21:15 Iv Lock (Ed Only) EDM 07/17/16 Transmitted 20:40 Cta Pe/Cta Aorta CT 07/17/16 Taken 21:27 Iohexol (Omnipaque) PHA 07/17/16 Complete 21:58 Iohexol (Omnipaque) PHA 07/17/16 Complete 21:58 Normal Saline (Ns) PHA 07/17/16 Complete 21:58 Saline Flush (Iv PHA 07/17/16 Complete Flush) 21:58 Iohexol (Omnipaque) PHA 07/17/16 Complete 22:00 Lab Results Laboratory Tests Test 07/17/16 20:38 White Blood Count 8.5T/MM3 Red Blood Count 5.26M/MM3 Hemoglobin 17.2GM/DL Hematocrit 49.8% Mean Corpuscular Volume 94.7UM3 Mean Corpuscular Hemoglobin 32.7UUG Mean Corpuscular Hemoglobin Concent 34.5GM/DL RDW Standard Deviation 43.6FL Platelet Count 124T/MM3 Mean Platelet Volume 11.9UM3 Immature Granulocyte % (Auto) 0.2% Neutrophils (%) (Auto) 64.3% Lymphocytes (%) (Auto) 27.4% Monocytes (%) (Auto) 6.6% Eosinophils (%) (Auto) 1.3% Basophils (%) (Auto) 0.2% Absolute Immature Granulocyte (auto 0.02T/MM3 Absolute Neutrophils (auto) 5.5T/MM3 Absolute Lymphocytes (auto) 2.3T/MM3 Absolute Monocytes (auto) 0.6T/MM3 Absolute Eosinophils (auto) 0.1T/MM3 Absolute Basophils (auto) 0.0T/MM3 Turbidity 29 Sodium Level 146MEQ/L Potassium Level 3.7MEQ/L Chloride Level 108MEQ/L Carbon Dioxide Level 25MEQ/L Anion Gap 13MEQ/L Blood Urea Nitrogen 16.0MG/DL Creatinine 1.0MG/DL Glomerular Filtration Rate Calc 75 BUN/Creatinine Ratio 16RATIO Glucose Level 190MG/DL Calculated Osmolality 287MOSM/KG Calcium Level 9.3MG/DL Total Bilirubin 0.60MG/DL Icterus Index < 2 Aspartate Amino Transf (AST/SGOT) 31U/L Alanine Aminotransferase (ALT/SGPT) 57U/L Alkaline Phosphatase 95U/L Troponin I < 0.012ng/ml Total Protein 6.7G/DL Albumin 4.0G/DL Globulin 2.7G/DL Albumin/Globulin Ratio 1.5RATIO Chemistry Specimen Hemolysis 24 Medications Current ED Medications Iohexol (Omnipaque) 1 bottle STK-MED ONCE .ROUTE ; Start 07/17/16 at 21:58; Stop 07/17/16 at 21:59; Status DC Iohexol 1 bottle 1 bottle STK-MED ONCE .ROUTE ; Start 07/17/16 at 21:58; Stop at 21:59; Status DC Sodium Chloride (NS) 100 ml @ As Directed STK-MED ONCE .ROUTE ; Start 07/17/16 at 21:58; Stop 07/17/16 at 21:59; Status DC Sodium Chloride (Iv Flush) 10 ml STK-MED ONCE .ROUTE ; Start 07/17/16 at 21:58; Stop 07/17/16 at 21:59; Status DC Iohexol (Omnipaque) 1 bottle STK-MED ONCE .ROUTE ; Start 07/17/16 at 22:00; Stop 07/17/16 at 22:01; Status DC Progress Progress Labs / imaging were discussed in detail with the patient and family and questions are answered. Patient is given 243 mg of aspirin by mouth 1 in the emergency Department. Patient is given amiodarone 400 mg by mouth 1 after discussion with Cardiology. Patient is admitted to the service of Dr. Boggs in improved condition. Patient became pain free when he self cardioverted in the emergency department. My belief is at the patient's home Lopressor caused the patient to cardiovert from atrial fibrillation with RVR to normal sinus rhythm. Repeat EKG was obtained. Patient remained pain-free in the emergency department after this. Patient is in agreement with the current plan of management. He is admitted to the hospital in improved condition. There are no further orders from the accepting physician who is in agreement with the current plan of management. EKG EKG : Rate: >100 Rhythm: atrial fibrillation [place]: left QRS: normal Intervals: normal ST/T: other (no STEMI.) Interpreted by: signing physician EKG Comments EKG #2 - sinus rhythm. Left axis deviation. [address] elevation TN. CT CT : CT: Chest IV contrast Interpretation: Abnormal (negative for pulmonary embolism. Stable abdominal aortic aneurysm. Otherwise no acute processes.), Faxed Report PAWAN SALAZAR DO Jul 17, 2016 21:47
[2016-07-17] MEDS ORDERED: IOHEXOL 350 MG/ML 50ml INJECTION ONE (21:58)
[2016-07-17] MEDS ORDERED: SALINE FLUSH 10ml SYRINGE ONE (21:58)
[2016-07-17] MEDS ORDERED: IOHEXOL 350 MG/ML 75ml INJECTION ONE (21:58)
[2016-07-17] MEDS ORDERED: NORMAL SALINE 100 ML ONE (21:58)
[2016-07-17] MEDS ORDERED: IOHEXOL 350 MG/ML 100ml INJECTION ONE (22:00)
--- NOTE | 2016-07-17 22:08 | NUR ---
STATUS PT REPORTS HIS PAIN IS GONE STATES HE IS READY FOR BED NOW AWARE DR HAS ORDERED CT OF CHEST PT JOKING WITH STAFF AND HIS
--- NOTE | 2016-07-17 22:25 | NUR ---
CT PT TAKEN TO CT PER CART
--- NOTE | 2016-07-17 22:44 | NUR ---
ROOM PT RETURNED TO ROOM [address]
--- NOTE | 2016-07-17 23:14 | NUR ---
STATUS PT CONTINUES TO HAVE NO CHEST PAIN ALSO DENIES NAUSEA REMAINS AT BEDSIDE
--- OUTSIDE RECORDS SUMMARY | 2016-07-17 23:24 | XMS REPORT | Continuity of Care Document ---
Author Author Lynne [facility] Address Unknown Phone Unavailable Allergies Medications Problems Date Dx Coded Attending Type Code Diagnosis Diagnosed By 10/13/2013 ONI TEMPLETON MD 491.21 OBSTRUCTIVE CHRONIC BRON 10/13/2013 ONI TEMPLETON MD 786.50 CHEST PAIN NOS 11/14/2013 ONI TEMPLETON MD 238.2 [facility] Procedures Code Description [place] [address] ROUTINE VENIPUNCTURE ONI TEMPLETON MD 10/13/2013 81272 CHEST X-RAY ONI TEMPLETON MD 10/13/2013 13304 COMPREHEN METABOLIC PANEL ONI TEMPLETON MD 10/13/2013 49734 ASSAY OF CK (CPK) ONI TEMPLETON MD 10/13/2013 56896 CREATINE, MB FRACTION ONI TEMPLETON MD 10/13/2013 80130 LACTATE (LD) (LDH) ENZYME ONI TEMPLETON MD 10/13/2013 85947 ASSAY OF TROPONIN, QUAL ONI TEMPLETON MD 10/13/2013 05365 COMPLETE CBC W/AUTO DIFF WBC ONI TEMPLETON MD 10/13/2013 36104 PROTHROMBIN TIME ONI TEMPLETON MD 10/13/2013 21607 THROMBOPLASTIN TIME, PARTIAL ONI TEMPLETON MD 10/13/2013 31466 ELECTROCARDIOGRAM, TRACING ONI TEMPLETON MD 10/13/2013 Results Test Result Range CBC - 10/13/13 10:30 RBC 5.51 10^6u 4.6-6.2 [place] % 10.4 % 0-12 MPV 11.5 FL [...] Status Pt. Type Provider Facility Loc./Unit Complaint [id number] 08/08/2014 15:41:00 08/08/2014 15 :41:00 CAN Emergency JARETH CEJA, [facility] ER [id number] 11/14/2013 13:40:00 11/14/2013 13 :40:00 DIS Outpatient JARETH CEJA, ONI [facility] OTHER [id number] 10/13/2013 10:07:00 10/13/2013 10 :07:00 DIS Outpatient JARETH CEJA, [facility] LAB [id number] 10/13/2013 09:20:00 10/13/2013 09 :20:00 DIS Outpatient JARETH CEJA, [facility] OTHER
[2016-07-18] MEDS ORDERED: AMIODARONE 200 MG TABLET PO ONE (00:15)
--- NOTE | 2016-07-18 00:21 | NUR ---
REPORT REPORT CALLED TO TAMIM GARCIA ON SURGICAL UNIT
[2016-07-18 00:30] VITALS: BP 146/82; PULSE 77; RESP 18; TEMP 98.1; O2SAT 95; Ht 177.8 cm; Wt 90.4 kg
--- NOTE | 2016-07-18 00:30 | NUR ---
ADMIT PT TAKEN TO SURGICAL UNIT, ROOM 126 PT ESCORTED TO ROOM BY RN AND
[2016-07-18 01:50] VITALS: PULSE 77; RESP 18
--- NOTE | 2016-07-18 07:54 | NUR ---
SHIFT REPORT PATIENT ALERT/ORIENTED X3. VITAL SIGNS STABLE ON RM AIR. SINUS ARRHYTHMIA. 20G IV LOCKED RT HAND. NEW DIAGNOSIS OF CANCER. STARTING HORMONE THERAPY TODAY PER DAUGHTER. AT BEDSIDE. UP STANDBY ASSIST. WILL CONTINUE TO MONITOR.
[2016-07-18 08:00] VITALS: BP 129/69; PULSE 66; RESP 16; TEMP 97.8; O2SAT 94
--- NOTE | 2016-07-18 08:00 | NUR ---
RECEIVED REPORT PATIENT IS ALERT AND ORIENTED. DENIES CHEST PAIN THIS MORNING. WAITING FOR DR. LIZARRAGA FOR UPDATE OF HIS PLAN OF CARE. PATIENT IUS ON TELEMETRY SINUS RHYTHM. RA. MENJIVAR.
--- NOTE | 2016-07-18 08:20 | DI ---
Indication: ITS.REASON: Chest pain, known abdominal aortic aneurysm, tachycardia PROCEDURE: CTA PE/CTA AORTA: Encounter: Initial Comparison: CT chest dated June 17, 2016 Technique: Axial CT angiographic imaging of the chest, abdomen and pelvis was performed before and after the administration of intravenous contrast. Coronal and sagittal MIP reconstructed images were created and reviewed. Three-dimensional surface shaded volume rendered imaging of the aorta and arterial vasculature was created by the technologist on a dedicated workstation under the direction of the interpreting radiologist and reviewed. CT angiography of the chest in the pulmonary angiographic phase to evaluate for pulmonary embolus was also performed with coronal and sagittal MIP reconstructed images. Automated Exposure Control and Iterative Reconstruction dose reducing techniques were utilized. Contrast: 100 mL Omnipaque 350 Findings: CTA chest for PE Findings: Pulmonary arteries: Exam is diagnostic to the subsegmental pulmonary arterial level. No filling defects identified to suggest a pulmonary embolus. Other findings: Lungs are clear. Minimal emphysema. Mild dependent atelectasis. No pneumonia, pleural effusion or pneumothorax. The central airways are patent. No axillary or mediastinal adenopathy. Heart size is normal. No pericardial effusion. Impression: No pulmonary embolus or acute intrathoracic disease process seen. CTA chest for aorta Findings: Noncontrast images show no evidence of intramural hematoma. Postcontrast images show no evidence of aortic dissection or aneurysm mild atherosclerotic plaque in the aortic arch. Please see the CT PET report above for additional findings Impression: No evidence of acute aortic syndrome. CTA of the abdomen and pelvis with without contrast: Findings: Known abdominal aortic aneurysm is again seen measuring up to 4.5 cm in diameter, stable from the comparison study. No dissection appreciated. Scattered atherosclerotic plaque and extensive mural thrombus. The celiac and SMA origins are widely patent as are the renal artery origins. RUTH origin is occluded. No acute abnormality seen in the solid organs or visualized loops of small and large bowel. Bony structures are unchanged without acute abnormality. Impression: Stable 4.5 cm abdominal aortic aneurysm. No acute disease process seen. There is a preliminary report by [employer]. .
[2016-07-18] MEDS ORDERED: ASPIRIN 81 MG CHEWABLE TABLET PO SCH (09:00)
[2016-07-18] MEDS ORDERED: PRN ORDERS MC (09:15)
[2016-07-18] MEDS ORDERED: ONDANSETRON 4mg/2ml INJECTION IV PRN (09:15)
[2016-07-18] MEDS ORDERED: MORPHINE SULFATE 4 MG SYRINGE IV PRN (09:15)
[2016-07-18] MEDS ORDERED: AMIODARONE 200 MG TABLET PO SCH ×2 (09:15→21:00)
[2016-07-18] MEDS ORDERED: NITROGLYCERIN 0.4 MG SUBLINGUAL TABLET SL PRN (09:15)
[2016-07-18 10:08] LABS: BASOPHILS % (AUTO) 0.1 % (0-2); EOSINOPHILS # (AUTO) 0.1 T/MM3 (0-0.5); EOSINOPHILS % (AUTO) 1.4 % (0-4); HCT - HEMATOCRIT 51.4 % (41-53); HGB - HEMOGLOBIN 17.3 GM/DL (13.5-17.5); IMMATURE GRANULOCYTE # (AUTO) 0.01 T/MM3 (0.00-0.03); IMMATURE GRANULOCYTE % (AUTO) 0.1 % (0.0-0.5); LYMPHOCYTES # (AUTO) 2.1 T/MM3 (1-4.8); MEAN CORPUSCULAR HGB 32.4 UUG (26-34); MEAN CORPUSCULAR HGB CONC(MCHC 33.7 GM/DL (31-37); MEAN CORPUSCULAR VOLUME 96.3 UM3 (80-100); MEAN PLATELET VOLUME 11.7 UM3 (9.4-12.4); MONOCYTES # (AUTO) 0.7 T/MM3 (0-0.8); MONOCYTES % (AUTO) 9.1 % (0-9.0); NEUTROPHILS #(AUTO)-ABSOLUTE 4.7 T/MM3 (1.8-7.7); NEUTROPHILS % (AUTO) 61.3 % (33-66); RED BLOOD COUNT 5.34 M/MM3 (4.50-5.90); WBC - WHITE BLOOD COUNT 7.6 T/MM3 (4.5-11.0)
[2016-07-18 10:18] LABS: ANION GAP 13 MEQ/L (5-15); BUN/CREATININE RATIO 14 RATIO (6-26); CALCIUM 9.1 MG/DL (8.4-10.2); CHLORIDE 107 MEQ/L (98-107); CO2 - CARBON DIOXIDE 25 MEQ/L (22-30); CREATININE 0.9 MG/DL (0.8-1.5); GLOMERULAR FILTRATION RATE 84; GLUCOSE 106 MG/DL (75-110); POTASSIUM 4.1 MEQ/L (3.6-5); SODIUM 145 MEQ/L (134-144)
--- NOTE | 2016-07-18 10:20 | NUR ---
CM CM IN TO VISIT WITH PT. HE IS ALERT AND ORIENTED. HIS AND DAUGHTER ARE PRESENT. PT PLANS TO DC HOME. HE DENIES DC NEEDS. HE IS GIVEN CM CONTACT INFORMATION. Addendum: 07/18/16 at 1021 by NORY KRISHNAMURTHY RN Amended: Links added.
[2016-07-18] MEDS: DABIGATRAN 150 MG CAPSULE PO SCH ×2 (13:00→14:30)
--- NOTE | 2016-07-18 15:47 | HPPDOC ---
HPI - Adult Date DATE: 07/18/16 TIME: 11:50 General Date of Admission Date of Admission: Jul 17, 2016 at 22:33 History of Present Illness Raul is a 65-year-old male presents to the ED with a chief complaint of chest discomfort. He states that starting a few hours prior to presentation to the ED today he began feeling his heart beating erratically and a pressured sensation with this in his chest. He denies any history of similar symptoms in the past. His current discomfort is moderate and dull in nature. There is no radiation. He does not note any exacerbating or remitting factors. He did take his full dose Lopressor for this evening prior to arrival to the ED. He denies any other complaints or associated symptoms. He does have a history of coronary artery disease with stent placement in his last cardiac catheterization being in 2004. He did take 81 mg of aspirin prior to arrival to the ED. He is seen this morning in his room on the Surgical unit, his and daughter are at the bedside. He states that prior to the onset of his pain he had been to an education appointment for his hormone therapy for prostate cancer which was a new diagnosis at the beginning of the year. He also reports having had a hernia repair 3 weeks ago. He denies complaints at this time Past Medical History Past Medical History Metabolic: cancer, hypertension Cardiac: CAD Surgical History Cardiac: cardiac cath, cardiac stent Current Medications Home Meds Active Scripts Amiodarone HCl (Pacerone) 200 Mg Tablet, 400 MG PO BID for 6 Days, #24 TAB 0 Refills Prov:SHARMILA GALARZA SENIOR GRANT WRITER 07/18/16 Amiodarone HCl (Pacerone) 200 Mg Tablet, 200 MG PO DAILY for 30 Days, #30 TAB 11 Refills Prov:SHARMILA GALARZA SENIOR GRANT WRITER 07/18/16 Dabigatran Etexilate Mesylate (Pradaxa) 150 Mg Capsule, 150 MG PO BID for 30 Days, #60 CAP 11 Refills Prov:SHARMILA GALARZA 07/18/16 Reported Medications Calcium Carbonate/Simethicone ([place] Heartburn+Gas) 1 Each Tab.chew, 1 TAB PO PRN 07/17/16 Multivitamin (Multi-Day Vitamins) 1 Each Tablet, 1 TAB PO DAILY 07/17/16 Atorvastatin Calcium (Atorvastatin Calcium) 40 Mg Tablet, 40 MG PO HS 07/17/16 Nitroglycerin (Nitroglycerin) 0.4 Mg Tab.subl, 0.4 MG SL Q5MIN Y for CHEST TIGHTNESS 07/17/16 Metoprolol Tartrate (Metoprolol Tartrate) 50 Mg Tablet, 50 MG PO BIDWM 07/17/16 Ramipril (Ramipril) 5 Mg Capsule, 5 MG PO DAILY, CAP 06/26/16 Discontinued Reported Medications Aspirin (Aspir-Low) 81 Mg Tablet.dr, 81 MG PO DAILY 06/26/16 Allergies: Coded Allergies: Penicillins (Verified Allergy, Unknown, RASH-HIVES, 07/17/16) Family History FOUND: CAD Vaccines 2015 Social History Smoking Status: Current every day smoker Does patient use chewing tobac: No # of Packs/Tins per Day: 1 # of Years: 50 Second Hand Exposure: No Substance Use Type: does not use Alcohol Intake: none Advance Directives: No DPOA for Healthcare Only Review of Systems Constitutional: REPORTS: dizziness, DENIES: chills, fever, weakness Eyes Vision: DENIES: blurring ENMT Hearing: DENIES: tinnitus Balance: DENIES: vertigo Sinuses: NOT FOUND: rhinorrhea Mouth/Throat: DENIES: sore throat Cardiovascular chest pain, DENIES: dyspnea on exertion, orthopnea, paroxysmal nocturnal dysp Rhythm/Rate: palpitations, DENIES: irregular beat Vascular: DENIES: pedal edema Pulmonary Respiratory: DENIES: cough, sputum GI Upper Abdomen: DENIES: nausea, vomiting Lower Abdomen: DENIES: diarrhea General: DENIES: dysuria Musculoskeletal General: DENIES: weakness Integumentary Skin: DENIES: rash, sores Neurological General: DENIES: headache, numbness, seizures, syncope, weakness All Other Systems All Other Systems: Reviewed (remainder of 10-point ROS Neg.) Physical Exam General General Nourishment: well nourished, well developed, apparent age Vital Signs Vital Signs Date Time Temp Pulse Resp B/P Pulse Ox O2 Delivery O2 Flow Rate FiO2 07/18/16 08:00 66 16 07/18/16 08:00 97.8 129/69 94 Room Air Height (Feet): 5 Height (Inches): 10.00 Telemetry Rhythm: Sinus Rhythm ENMT Brief: FOUND: mucosa moist Neck Brief: NOT FOUND: JVD, carotid bruits Respiratory Brief: FOUND: clear all lindsay, equal bilaterally, NOT FOUND: rales , wheezes Cardiovascular (brief) Cardiac Brief: FOUND: regular rate, regular rhythm, NOT FOUND: click, gallop, murmur, pedal edema Abdomen (brief) Abdominal Brief: FOUND: BS normo active x4, soft, NOT FOUND: tender Integumentary (brief) Integumentary Brief: FOUND: dry, warm Neurologic RN Documented GCS Eye Opening: (4)Spontaneous Verbal: (5)Oriented Motor: (6)Obeys Commands Total: Psychiatric (brief) FOUND: alert, oriented Laboratory Laboratory Tests Test 07/17/16 20:38 07/18/16 09:51 07/18/16 14:50 White Blood Count 8.5T/MM3 7.6T/MM3 Red Blood Count 5.26M/MM3 5.34M/MM3 Hemoglobin 17.2GM/DL 17.3GM/DL Hematocrit 49.8% 51.4% Mean Corpuscular Volume 94.7UM3 96.3UM3 Mean Corpuscular Hemoglobin 32.7UUG 32.4UUG Mean Corpuscular Hemoglobin Concent 34.5GM/DL 33.7GM/DL RDW Standard Deviation 43.6FL 46.0FL Platelet Count 124T/MM3 113T/MM3 Mean Platelet Volume 11.9UM3 11.7UM3 Immature Granulocyte % (Auto) 0.2% 0.1% Neutrophils (%) (Auto) 64.3% 61.3% Lymphocytes (%) (Auto) 27.4% 28.0% Monocytes (%) (Auto) 6.6% 9.1% Eosinophils (%) (Auto) 1.3% 1.4% Basophils (%) (Auto) 0.2% 0.1% Absolute Immature Granulocyte (auto 0.02T/MM3 0.01T/MM3 Absolute Neutrophils (auto) 5.5T/MM3 4.7T/MM3 Absolute Lymphocytes (auto) 2.3T/MM3 2.1T/MM3 Absolute Monocytes (auto) 0.6T/MM3 0.7T/MM3 Absolute Eosinophils (auto) 0.1T/MM3 0.1T/MM3 Absolute Basophils (auto) 0.0T/MM3 0.0T/MM3 Turbidity 29 < 20 Sodium Level 146MEQ/L 145MEQ/L Potassium Level 3.7MEQ/L 4.1MEQ/L Chloride Level 108MEQ/L 107MEQ/L Carbon Dioxide Level 25MEQ/L 25MEQ/L Anion Gap 13MEQ/L 13MEQ/L Blood Urea Nitrogen 16.0MG/DL 13.0MG/DL Creatinine 1.0MG/DL 0.9MG/DL Glomerular Filtration Rate Calc 75 84 BUN/Creatinine Ratio 16RATIO 14RATIO Glucose Level 190MG/DL 106MG/DL Calculated Osmolality 287MOSM/KG 279MOSM/KG Calcium Level 9.3MG/DL 9.1MG/DL Total Bilirubin 0.60MG/DL Icterus Index < 2 < 2 Aspartate Amino Transf (AST/SGOT) 31U/L Alanine Aminotransferase (ALT/SGPT) 57U/L Alkaline Phosphatase 95U/L Troponin I < 0.012ng/ml < 0.012ng/ml Total Protein 6.7G/DL Albumin 4.0G/DL Globulin 2.7G/DL Albumin/Globulin Ratio 1.5RATIO Chemistry Specimen Hemolysis 24 < 15 Magnesium Level 2.0MG/DL Thyroid Stimulating Hormone (TSH) 1.50MIU/L Laboratory Tests Test 07/17/16 20:38 07/18/16 09:51 White Blood Count 8.5T/MM3 7.6T/MM3 Red Blood Count 5.26M/MM3 5.34M/MM3 Hemoglobin 17.2GM/DL 17.3GM/DL Hematocrit 49.8% 51.4% Mean Corpuscular Volume 94.7UM3 96.3UM3 Mean Corpuscular Hemoglobin 32.7UUG 32.4UUG Mean Corpuscular Hemoglobin Concent 34.5GM/DL 33.7GM/DL RDW Standard Deviation 43.6FL 46.0FL Platelet Count 124T/MM3 113T/MM3 Mean Platelet Volume 11.9UM3 11.7UM3 Immature Granulocyte % (Auto) 0.2% 0.1% Neutrophils (%) (Auto) 64.3% 61.3% Lymphocytes (%) (Auto) 27.4% 28.0% Monocytes (%) (Auto) 6.6% 9.1% Eosinophils (%) (Auto) 1.3% 1.4% Basophils (%) (Auto) 0.2% 0.1% Absolute Immature Granulocyte (auto 0.02T/MM3 0.01T/MM3 Absolute Neutrophils (auto) 5.5T/MM3 4.7T/MM3 Absolute Lymphocytes (auto) 2.3T/MM3 2.1T/MM3 Absolute Monocytes (auto) 0.6T/MM3 0.7T/MM3 Absolute Eosinophils (auto) 0.1T/MM3 0.1T/MM3 Absolute Basophils (auto) 0.0T/MM3 0.0T/MM3 Turbidity 29 < 20 Sodium Level 146MEQ/L 145MEQ/L Potassium Level 3.7MEQ/L 4.1MEQ/L Chloride Level 108MEQ/L 107MEQ/L Carbon Dioxide Level 25MEQ/L 25MEQ/L Anion Gap 13MEQ/L 13MEQ/L Blood Urea Nitrogen 16.0MG/DL 13.0MG/DL Creatinine 1.0MG/DL 0.9MG/DL Glomerular Filtration Rate Calc 75 84 BUN/Creatinine Ratio 16RATIO 14RATIO Glucose Level 190MG/DL 106MG/DL Calculated Osmolality 287MOSM/KG 279MOSM/KG Calcium Level 9.3MG/DL 9.1MG/DL Total Bilirubin 0.60MG/DL Icterus Index < 2 < 2 Aspartate Amino Transf (AST/SGOT) 31U/L Alanine Aminotransferase (ALT/SGPT) 57U/L Alkaline Phosphatase 95U/L Troponin I < 0.012ng/ml < 0.012ng/ml Total Protein 6.7G/DL Albumin 4.0G/DL Globulin 2.7G/DL Albumin/Globulin Ratio 1.5RATIO Chemistry Specimen Hemolysis 24 < 15 Magnesium Level 2.0MG/DL Thyroid Stimulating Hormone (TSH) 1.50MIU/L EKG , LAD Radiology DATE OF EXAM: 07/17/16 ORDERING DOCTOR: PAWAN SALAZAR DO TYPE OF EXAM: CTA PE/CTA AORTA REASON FOR EXAM: pain Indication: ITS.REASON: Chest pain, known abdominal aortic aneurysm, tachycardia PROCEDURE: CTA PE/CTA AORTA: Encounter: Initial Comparison: CT chest dated June 17, 2016 Technique: Axial CT angiographic imaging of the chest, abdomen and pelvis was performed before and after the administration of intravenous contrast. Coronal and sagittal MIP reconstructed images were created and reviewed. Three-dimensional surface shaded volume rendered imaging of the aorta and arterial vasculature was created by the technologist on a dedicated workstation under the direction of the interpreting radiologist and reviewed. CT angiography of the chest in the pulmonary angiographic phase to evaluate for pulmonary embolus was also performed with coronal and sagittal MIP reconstructed images. Automated Exposure Control and Iterative Reconstruction dose reducing techniques were utilized. Contrast: 100 mL Omnipaque 350 Findings: CTA chest for PE Findings: Pulmonary arteries: Exam is diagnostic to the subsegmental pulmonary arterial level. No filling defects identified to suggest a pulmonary embolus. Other findings: Lungs are clear. Minimal emphysema. Mild dependent atelectasis. No pneumonia, pleural effusion or pneumothorax. The central airways are patent. No axillary or mediastinal adenopathy. Heart size is normal. No pericardial effusion. Impression: No pulmonary embolus or acute intrathoracic disease process seen. CTA chest for aorta Findings: Noncontrast images show no evidence of intramural hematoma. Postcontrast images show no evidence of aortic dissection or aneurysm mild atherosclerotic plaque in the aortic arch. Please see the CT PET report above for additional findings Impression: No evidence of acute aortic syndrome. CTA of the abdomen and pelvis with without contrast: Findings: Known abdominal aortic aneurysm is again seen measuring up to 4.5 cm in diameter, stable from the comparison study. No dissection appreciated. Scattered atherosclerotic plaque and extensive mural thrombus. The celiac and SMA origins are widely patent as are the renal artery origins. RUTH origin is occluded. No acute abnormality seen in the solid organs or visualized loops of small and large bowel. Bony structures are unchanged without acute abnormality. Impression: Stable 4.5 cm abdominal aortic aneurysm. No acute disease process seen. There is a preliminary report by [employer]. Assessment & Plan Problems: (1) Atrial fibrillation with RVR Status: Resolved Assessment & Plan: Self converted in ED after taking home Metoprolol. Started on Amiodarone 400mg BID x 7days, then 200mg daily. Will start on Pradaxa as it is [place] by [facility]. Check TSH and Mag, Continue to monitor on telemetry and repeat EKG this afternoon (2) Chest pain Status: Acute Qualifiers: Chest pain type: unspecified Qualified Codes: R07.9 - Chest pain, unspecified Assessment & Plan: Sternal pressure without radiation or associated symptoms, left without nitro, serial troponin levels and repeat EKG (3) CAD (coronary artery disease) of bypass graft Status: Chronic Qualifiers: [place] vs. transplanted heart: [place] heart Associated angina: angina presence unspecified Qualified Codes: I25.810 - Atherosclerosis of coronary artery bypass graft(s) without angina pectoris (4) Essential (primary) hypertension Status: Chronic Assessment & Plan: resume home meds (5) Mixed hyperlipidemia Status: Chronic (6) Nicotine dependence Status: Chronic Qualifiers: Nicotine product type: cigarettes Substance use status: uncomplicated Qualified Codes: F17.210 - Nicotine dependence, cigarettes, uncomplicated (7) Prostate cancer Status: Acute Assessment & Plan: Newly diagnosed. Had education appointment for hormone therapy directly before chest pressure began (8) Status post hernia repair Onset Date: ~ 06/27/2016 Status: Acute Plan/Intensity of Service A FIB: Self converted in ED after taking home Metoprolol. Started on Amiodarone 400mg BID x 7days then 200mg daily. Will start on Pradaxa as it is covered by [place] drug plan. Check TSH and Mag, Continue to monitor on telemetry and repeat EKG this afternoon. Chest pain: Sternal pressure without radiation or associated symptoms, left without nitro, serial troponin levels and repeat EKG. Code Status Full Code Hospital Course Summary Disclaimer The hospital course summary below is not to be considered part of the above Progress Note. SHARMILA GALARZA APRN Jul 18, 2016 11:53
[2016-07-18 16:00] VITALS: PULSE 70; RESP 16
[2016-07-18 16:32] VITALS: BP 149/83; PULSE 65; RESP 16; TEMP 98; O2SAT 96
--- NOTE | 2016-07-18 18:11 | DSPDOC ---
General Date Date DATE: 07/18/16 TIME: 18:06 Attending Physician Jeff Sunshine MD Admitting Physician Jeff Sunshine MD Consulting Physician Admitting Diagnosis Chest Pain, Afib with RVR Discharge Diagnosis Chest pain, A Fib RVR Laboratory Laboratory Tests Test 07/17/16 20:38 07/18/16 09:51 07/18/16 14:50 White Blood Count 8.5T/MM3 7.6T/MM3 Red Blood Count 5.26M/MM3 5.34M/MM3 Hemoglobin 17.2GM/DL 17.3GM/DL Hematocrit 49.8% 51.4% Mean Corpuscular Volume 94.7UM3 96.3UM3 Mean Corpuscular Hemoglobin 32.7UUG 32.4UUG Mean Corpuscular Hemoglobin Concent 34.5GM/DL 33.7GM/DL RDW Standard Deviation 43.6FL 46.0FL Platelet Count 124T/MM3 113T/MM3 Mean Platelet Volume 11.9UM3 11.7UM3 Immature Granulocyte % (Auto) 0.2% 0.1% Neutrophils (%) (Auto) 64.3% 61.3% Lymphocytes (%) (Auto) 27.4% 28.0% Monocytes (%) (Auto) 6.6% 9.1% Eosinophils (%) (Auto) 1.3% 1.4% Basophils (%) (Auto) 0.2% 0.1% Absolute Immature Granulocyte (auto 0.02T/MM3 0.01T/MM3 Absolute Neutrophils (auto) 5.5T/MM3 4.7T/MM3 Absolute Lymphocytes (auto) 2.3T/MM3 2.1T/MM3 Absolute Monocytes (auto) 0.6T/MM3 0.7T/MM3 Absolute Eosinophils (auto) 0.1T/MM3 0.1T/MM3 Absolute Basophils (auto) 0.0T/MM3 0.0T/MM3 Turbidity 29 < 20 Sodium Level 146MEQ/L 145MEQ/L Potassium Level 3.7MEQ/L 4.1MEQ/L Chloride Level 108MEQ/L 107MEQ/L Carbon Dioxide Level 25MEQ/L 25MEQ/L Anion Gap 13MEQ/L 13MEQ/L Blood Urea Nitrogen 16.0MG/DL 13.0MG/DL Creatinine 1.0MG/DL 0.9MG/DL Glomerular Filtration Rate Calc 75 84 BUN/Creatinine Ratio 16RATIO 14RATIO Glucose Level 190MG/DL 106MG/DL Calculated Osmolality 287MOSM/KG 279MOSM/KG Calcium Level 9.3MG/DL 9.1MG/DL Total Bilirubin 0.60MG/DL Icterus Index < 2 < 2 Aspartate Amino Transf (AST/SGOT) 31U/L Alanine Aminotransferase (ALT/SGPT) 57U/L Alkaline Phosphatase 95U/L Troponin I < 0.012ng/ml < 0.012ng/ml < 0.012ng/ml Total Protein 6.7G/DL Albumin 4.0G/DL Globulin 2.7G/DL Albumin/Globulin Ratio 1.5RATIO Chemistry Specimen Hemolysis 24 < 15 < 15 Magnesium Level 2.0MG/DL Thyroid Stimulating Hormone (TSH) 1.50MIU/L Laboratory Tests Test 07/17/16 20:38 07/18/16 09:51 07/18/16 14:50 White Blood Count 8.5T/MM3 (4.5-11.0) 7.6T/MM3 (4.5-11.0) Red Blood Count 5.26M/MM3 (4.50-5.90) 5.34M/MM3 (4.50-5.90) Hemoglobin 17.2GM/DL (13.5-17.5) 17.3GM/DL (13.5-17.5) Hematocrit 49.8% (41-53) 51.4% (41-53) Mean Corpuscular Volume 94.7UM3 (80-100) 96.3UM3 (80-100) Mean Corpuscular Hemoglobin 32.7UUG (26-34) 32.4UUG (26-34) Mean Corpuscular Hemoglobin Concent 34.5GM/DL (31-37) 33.7GM/DL (31-37) RDW Standard Deviation 43.6FL (36.9-50.2) 46.0FL (36.9-50.2) Platelet Count 124T/MM3 (130-400) 113T/MM3 (130-400) Mean Platelet Volume 11.9UM3 (9.4-12.4) 11.7UM3 (9.4-12.4) Immature Granulocyte % (Auto) 0.2% (0.0-0.5) 0.1% (0.0-0.5) Neutrophils (%) (Auto) 64.3% (33-66) 61.3% (33-66) Lymphocytes (%) (Auto) 27.4% (23-45) 28.0% (23-45) Monocytes (%) (Auto) 6.6% (0-9.0) 9.1% (0-9.0) Eosinophils (%) (Auto) 1.3% (0-4) 1.4% (0-4) Basophils (%) (Auto) 0.2% (0-2) 0.1% (0-2) Absolute Immature Granulocyte (auto 0.02T/MM3 (0.00-0.03) 0.01T/MM3 (0.00-0.03) Absolute Neutrophils (auto) 5.5T/MM3 (1.8-7.7) 4.7T/MM3 (1.8-7.7) Absolute Lymphocytes (auto) 2.3T/MM3 (1-4.8) 2.1T/MM3 (1-4.8) Absolute Monocytes (auto) 0.6T/MM3 (0-0.8) 0.7T/MM3 (0-0.8) Absolute Eosinophils (auto) 0.1T/MM3 (0-0.5) 0.1T/MM3 (0-0.5) Absolute Basophils (auto) 0.0T/MM3 (0-0.2) 0.0T/MM3 (0-0.2) Turbidity 29 (0-20) < 20 (0-20) Sodium Level 146MEQ/L (134-144) 145MEQ/L (134-144) Potassium Level 3.7MEQ/L (3.6-5) 4.1MEQ/L (3.6-5) Chloride Level 108MEQ/L (98-107) 107MEQ/L (98-107) Carbon Dioxide Level 25MEQ/L (22-30) 25MEQ/L (22-30) Anion Gap 13MEQ/L (5-15) 13MEQ/L (5-15) Blood Urea Nitrogen 16.0MG/DL (9-20) 13.0MG/DL (9-20) Creatinine 1.0MG/DL (0.8-1.5) 0.9MG/DL (0.8-1.5) Glomerular Filtration Rate Calc 75 84 BUN/Creatinine Ratio 16RATIO (6-26) 14RATIO (6-26) Glucose Level 190MG/DL (75-110) 106MG/DL (75-110) Calculated Osmolality 287MOSM/KG (261-280) 279MOSM/KG (261-280) Calcium Level 9.3MG/DL (8.4-10.2) 9.1MG/DL (8.4-10.2) Total Bilirubin 0.60MG/DL (0.20-1.30) Icterus Index < 2 (0-7) < 2 (0-7) Aspartate Amino Transf (AST/SGOT) 31U/L (17-59) Alanine Aminotransferase (ALT/SGPT) 57U/L (21-72) Alkaline Phosphatase 95U/L (38-126) Troponin I < 0.012ng/ml (0-0.12) < 0.012ng/ml (0-0.12) < 0.012ng/ml (0-0.12) Total Protein 6.7G/DL (6.3-8.2) Albumin 4.0G/DL (3.5-5.0) Globulin 2.7G/DL (2.4-3.6) Albumin/Globulin Ratio 1.5RATIO (1.1-2.2) Chemistry Specimen Hemolysis 24 (0-25) < 15 (0-25) < 15 (0-25) Magnesium Level 2.0MG/DL (1.6-2.3) Thyroid Stimulating Hormone (TSH) 1.50MIU/L (0.47-4.68) Radiology DATE OF EXAM: 07/17/16 ORDERING DOCTOR: PAWAN SALAZAR DO TYPE OF EXAM: CTA PE/CTA AORTA REASON FOR EXAM: pain Indication: ITS.REASON: Chest pain, known abdominal aortic aneurysm, tachycardia PROCEDURE: CTA PE/CTA AORTA: Encounter: Initial Comparison: CT chest dated June 17, 2016 Technique: Axial CT angiographic imaging of the chest, abdomen and pelvis was performed before and after the administration of intravenous contrast. Coronal and sagittal MIP reconstructed images were created and reviewed. Three-dimensional surface shaded volume rendered imaging of the aorta and arterial vasculature was created by the technologist on a dedicated workstation under the direction of the interpreting radiologist and reviewed. CT angiography of the chest in the pulmonary angiographic phase to evaluate for pulmonary embolus was also performed with coronal and sagittal MIP reconstructed images. Automated Exposure Control and Iterative Reconstruction dose reducing techniques were utilized. Contrast: 100 mL Omnipaque 350 Findings: CTA chest for PE Findings: Pulmonary arteries: Exam is diagnostic to the subsegmental pulmonary arterial level. No filling defects identified to suggest a pulmonary embolus. Other findings: Lungs are clear. Minimal emphysema. Mild dependent atelectasis. No pneumonia, pleural effusion or pneumothorax. The central airways are patent. No axillary or mediastinal adenopathy. Heart size is normal. No pericardial effusion. Impression: No pulmonary embolus or acute intrathoracic disease process seen. CTA chest for aorta Findings: Noncontrast images show no evidence of intramural hematoma. Postcontrast images show no evidence of aortic dissection or aneurysm mild atherosclerotic plaque in the aortic arch. Please see the CT PET report above for additional findings Impression: No evidence of acute aortic syndrome. CTA of the abdomen and pelvis with without contrast: Findings: Known abdominal aortic aneurysm is again seen measuring up to 4.5 cm in diameter, stable from the comparison study. No dissection appreciated. Scattered atherosclerotic plaque and extensive mural thrombus. The celiac and SMA origins are widely patent as are the renal artery origins. RUTH origin is occluded. No acute abnormality seen in the solid organs or visualized loops of small and large bowel. Bony structures are unchanged without acute abnormality. Impression: Stable 4.5 cm abdominal aortic aneurysm. No acute disease process seen. There is a preliminary report by [facility]. History of Present Illness Raul is a 65-year-old male presents to the ED with a chief complaint of chest discomfort. He states that starting a few hours prior to presentation to the ED today he began feeling his heart beating erratically and a pressured sensation with this in his chest. He denies any history of similar symptoms in the past. His current discomfort is moderate and dull in nature. There is no radiation. He does not note any exacerbating or remitting factors. He did take his full dose Lopressor for this evening prior to arrival to the ED. He denies any other complaints or associated symptoms. He does have a history of coronary artery disease with stent placement in his last cardiac catheterization being in 2004. He did take 81 mg of aspirin prior to arrival to the ED. He is seen this morning in his room on the Surgical unit, his and daughter are at the bedside. He states that prior to the onset of his pain he had been to an education appointment for his hormone therapy for prostate cancer which was a new diagnosis at the beginning of the year. He also reports having had a hernia repair 3 weeks ago. He denies complaints at this time Objective Vital Signs Vital signs Vital Signs 07/18/16 07/18/16 07/18/16 07/18/16 08:00 08:00 16:00 16:32 Temp 97.8 98.0 Pulse 66 66 70 65 Resp 16 16 16 16 B/P 129/69 149/83 Pulse Ox 94 96 O2 Delivery Room Air Room Air Telemetry Rhythm: Sinus Rhythm Height (Feet): 5 Height (Inches): 10.00 Weight (Kilograms): 90.400 General Alert, Orientated x 3, Cooperative, No Acute Distress ENMT (Brief) mucosa moist Neck (Brief) NOT FOUND: JVD, carotid bruits Respiratory (Brief) clear all lindsay, equal bilaterally, NOT FOUND: rales, wheezes Cardiovascular (Brief) regular rate, regular rhythm, NOT FOUND: click, gallop, murmur, pedal edema, rub Abdomen (Brief) BS normo active x4, soft, NOT FOUND: tender Integumentary (Brief) dry, pink, warm Psychiatric (Brief) alert, normal affect, oriented Laboratory Laboratory Laboratory Tests 07/17/16 20:38 07/18/16 09:51 Laboratory Tests 07/17/16 20:38 07/18/16 09:51 EKG SR, LAD, Non Specific ST changes Medications Current Medications Iohexol 1 bottle 1 bottle STK-MED ONCE .ROUTE ; Start 07/17/16 at 21:58; Stop at 21:59; Status DC Sodium Chloride (NS) 100 ml @ As Directed STK-MED ONCE .ROUTE ; Start 07/17/16 at 21:58; Stop 07/17/16 at 21:59; Status DC Sodium Chloride (Iv Flush) 10 ml STK-MED ONCE .ROUTE ; Start 07/17/16 at 21:58; Stop 07/17/16 at 21:59; Status DC Iohexol (Omnipaque) 1 bottle STK-MED ONCE .ROUTE ; Start 07/17/16 at 22:00; Stop 07/17/16 at 22:01; Status DC Aspirin (ASA) 243 mg DAILY PO Last administered on 07/18/16 09:00; Start 07/18 at 09:00; Stop 07/18/16 at 09:06; Status DC Morphine Sulfate (Morphine) prn Q1H PRN IV PAIN; Start 07/18/16 at 09:15 Ondansetron HCl (Zofran) 4 mg Q6H PRN IV NAUSEA; Start 07/18/16 at 09:15 Miscellaneous Medication (May use PRN orders) 1 PRN PRN MC ; Start 07/18/16 at 09:15 Aspirin (Ecotrin) 81 mg DAILY PO ; Start 07/19/16 at 09:00; Stop 07/19/16 at 09: 00; Status DC Atorvastatin Calcium (LIPITOR 40 mg) 40 mg HS PO ; Start 07/18/16 at 22:00 Metoprolol Tartrate (Lopressor) 50 mg BIDWM PO ; Start 07/18/16 at 17:30 Nitroglycerin (Nitrostat) 0.4 mg Q5MIN PRN SL CHEST TIGHTNESS; Start 07/18/16 at 09:15 Ramipril (Altace) 5 mg DAILY PO ; Start 07/19/16 at 09:00 Amiodarone HCl (Pacerone) 400 mg BID PO Last administered on 07/18/16 11:37; Start 07/18/16 at 09:15 Dabigatran (Pradaxa) 150 mg BID PO ; Start 07/18/16 at 13:00 Hospital Course Admitted for observation, started on antiarrhythmic therapy on Amiodarone, and Pradaxa for anticoagulation. Problems: (1) Atrial fibrillation with RVR Status: Resolved (2) Chest pain Status: Acute (3) CAD (coronary artery disease) of bypass graft Status: Chronic (4) Essential (primary) hypertension Status: Chronic (5) Mixed hyperlipidemia Status: Chronic (6) Nicotine dependence Status: Chronic (7) Prostate cancer Status: Acute (8) Status post hernia repair Onset Date: ~ 06/27/2016 Status: Acute Code Status Full Code Home Meds Reported Medications Calcium Carbonate/Simethicone (Paola-Thornton Heartburn+Gas) 1 Each Tab.chew, 1 TAB PO PRN 07/17/16 Multivitamin (Multi-Day Vitamins) 1 Each Tablet, 1 TAB PO DAILY 07/17/16 Atorvastatin Calcium (Atorvastatin Calcium) 40 Mg Tablet, 40 MG PO HS 07/17/16 Nitroglycerin (Nitroglycerin) 0.4 Mg Tab.subl, 0.4 MG SL Q5MIN Y for CHEST TIGHTNESS 07/17/16 Metoprolol Tartrate (Metoprolol Tartrate) 50 Mg Tablet, 50 MG PO BIDWM 07/17/16 Ramipril (Ramipril) 5 Mg Capsule, 5 MG PO DAILY, CAP 06/26/16 Aspirin (Aspir-Low) 81 Mg Tablet.dr, 81 MG PO DAILY 06/26/16 Discharge Disposition Discharged to home in good and stable condition in the care of himself with Pradaxa samples and RX for Pradaxa and Amiodarone transmitted to the [facility] pharmacy. SHARMILA GALARZA APRN Jul 18, 2016 18:09
[2016-07-18] MEDS ORDERED: AMIO200T7 PO ×2 (18:15)
[2016-07-18] MEDS ORDERED: DABI150C PO (18:15)
--- NOTE | 2016-07-18 18:50 | NUR ---
DISCHARGED PATIENT DISCHARGE AND MEDICATION INSTRUCTIONS ARE GIVEN. PATIENT IS WALKED OUT TO FAMILY CAR AT THIS TIME. PATIENT HAS BEEN WANTING TO GO HOME ALL DAY. NO CONCERNS NOTED OVER HIS STAY THIS SHIFT.
[2016-07-18] MEDS ORDERED: ATORVASTATIN 40 MG TABLET PO SCH (22:00)
[2016-07-19] MEDS ORDERED: RAMIPRIL 5 MG CAPSULE PO SCH (09:00)
[2016-07-19] MEDS ORDERED: ASPIRIN *EC* 81mg TABLET PO SCH (09:00)
--- NOTE | 2016-07-19 17:09 | CARDHP ---
DATE OF PROCEDURE 07/18/16 This is a two-dimensional echo with spectral Doppler, color-flow and M-mode. This was obtained in a patient with atrial fibrillation. Left atrial dimension is normal. Left ventricle end-diastolic dimension is normal. Left ventricle wall thickness is normal. LV systolic function is normal with ejection fraction of 60%. Right atrium is normal. Right ventricle is normal. Aortic root dimension is normal. Mitral, aortic, tricuspid, pulmonary valves are morphologically normal with trace of mitral regurgitation, trace of tricuspid regurgitation and trace of pulmonary insufficiency. Estimated pulmonary artery systolic pressure is 28. There is no pericardial effusion. IMPRESSION 1. Normal LV systolic function with ejection fraction of about 60%. 2. Trace of mitral regurgitation. 3. Trace of tricuspid regurgitation with normal estimated pulmonary artery systolic pressure of 28. 4. Trace of pulmonary insufficiency. Cc: Primary care physician
--- NOTE | 2016-07-21 07:28 | ECHOF ---
DATE OF PROCEDURE 07/18/16 PROCEDURE This is a two-dimensional echo with spectral Doppler, color-flow and M-mode. This was obtained in a patient with atrial fibrillation. DESCRIPTION OF PROCEDURE Left atrial dimension is normal. Left ventricle end-diastolic dimension is normal. Left ventricle wall thickness is normal. LV systolic function is normal with ejection fraction of 60%. Right atrium is normal. Right ventricle is normal. Aortic root dimension is normal. Mitral, aortic, tricuspid, pulmonary valves are morphologically normal with trace of mitral regurgitation, trace of tricuspid regurgitation and trace of pulmonary insufficiency. Estimated pulmonary artery systolic pressure is 28. There is no pericardial effusion. IMPRESSION 1. Normal LV systolic function with ejection fraction of about 60%. 2. Trace of mitral regurgitation. 3. Trace of tricuspid regurgitation with normal estimated pulmonary artery systolic pressure of 28. 4. Trace of pulmonary insufficiency. MTDD
[2016-07-25] MEDS ORDERED: AMIODARONE 200 MG TABLET PO SCH (09:00)
== END 2016-07-18 18:50 | disposition home or self-care (01) ==
LOC: ED 20:32 → EDHOLD 22:33 → SRG 07-18 00:30
PROVIDERS: ADMIT Internal Medicine Cardiovascular Disease; ATTEND Internal Medicine Cardiovascular Disease
DX: I48.91 Unspecified atrial fibrillation (principal); I25.810 Atherosclerosis of coronary artery bypass graft(s) without angina pectoris; R07.89 Other chest pain; Z95.5 Presence of coronary angioplasty implant and graft; I10 Essential (primary) hypertension; F17.210 Nicotine dependence, cigarettes, uncomplicated; I71.4 Abdominal aortic aneurysm, without rupture; E78.2 Mixed hyperlipidemia; C61 Malignant neoplasm of prostate; Z79.82 Long term (current) use of aspirin; Z79.899 Other long term (current) drug therapy
CPT/HCPCS: 36415; 71275; 72175; 74175; 80048; 80053; 83735; 84443; 84484; 85025; 93005; 93306; 99284; 99406; A9270; G0378; J7050; Q9967; 99218

== ENCOUNTER → 2016-07-25 | Outpatient (CLI) | payer MEDICARE, BC ==
[~2016-07-25] MED LIST changes: +AMIO200T7 PO; -ASPI81TA43 PO; +ATOR40TA64 PO; +CALC-1105 PO; +DABI150C PO; -HYDR-973 PO; -IBUP-1724 PO; -LOVA40TA2 PO; -METO25TA6 PO; +METO50TA5 PO; +MULT-933 PO; +NITR0.4T39 SL; -POLY17PO6 PO
== END ==
LOC: LAB 08:24
PROVIDERS: ATTEND Internal Medicine Medical Oncology
DX: C61 Malignant neoplasm of prostate (principal)
CPT/HCPCS: 93005